=== PATIENT | female | born 1990 | race Caucasian/White ===

== ENCOUNTER → 2018-04-21 13:53 | Outpatient (CLI) | payer MEDICAID, SELFPAY ==
[2018-04-21 14:32] LABS: Basophils # 0.1 K/mm3 (0-0.2); Basophils % 0.6 % (0.1-2.0); Eosinophils # 0.1 K/mm3 (0.0-0.4); Eosinophils % 1.5 % (0.1-12.0); Hemoglobin 13.1 g/dL (12.2-16.2); Lymphocytes # 2.6 K/mm3 (0.7-4.5); Lymphocytes % 28.2 % (10-50); Mean Corpuscular HGB Conc 31.1 g/dL (31.8-35.4); Mean Corpuscular Hemoglobin 27.8 pg (27.0-31.2); Mean Corpuscular Volume 89.5 fl (81-99); Mean Platelet Volume 9.8 fl (7.4-10.4); Monocytes # 0.4 K/mm3 (0.1-1.0); Monocytes % 4.3 % (1.7-9.3); Neutrophils # 6.1 K/mm3 (1.8-7.8); Neutrophils % 65.6 % (37.0-80.0); Platelet Count 174 K/mm3 (142-424); Red Blood Count 4.69 M/mm3 (4.20-5.40); Red Cell Distribution Width 13.1 % (11.5-17.5); White Blood Count 9.2 K/mm3 (4.8-10.8)
[2018-04-21 14:59] LABS: Alanine Aminotransferase 77 U/L (12-78); Albumin Level 3.9 gm/dL (3.4-5.0); Albumin/Globulin Ratio 1.1 (1.1-1.8); Alkaline Phosphatase 57 U/L (46-116); Aspartate Amino Transferase 43 U/L (15-37); Bilirubin,Total 0.8 mg/dL (0.2-1.0); Blood Urea Nitrogen 13 mg/dL (7-18); Calcium 9.3 mg/dL (8.5-10.1); Carbon Dioxide 24 mmol/L (21.0-32.0); Chloride 105 mmol/L (98-107); Chol/HDL Ratio 3.2 (1-3.5); Cholesterol 148 mg/dL (140-200); Creatinine,Serum 0.88 mg/dL (0.55-1.02); Estimated Glomerular Filt Rate 77 ml/min (>60); GFR (African American) 93 ML/MIN (>60); Globulin 3.7 gm/dl (1.3-3.2); Glucose 83 mg/dL (74-106); HDL Cholesterol 46 mg/dL (29-89); LDL Cholesterol 84 mg/dL (0-130); Sodium 141 mmol/L (136-145); T4 (Thyroxine) 10.9 ug/dl (4.7-13.3); Thyroid Stimulating Hormone 1.53 uIU/ml (0.358-3.740); Total Protein,Serum 7.6 gm/dL (6.4-8.2); Triglycerides 88 mg/dL (30-200); VLDL Cholesterol 18 mg/dL (0-40)
[2018-04-21 15:30] LABS: Hemoglobin A1C 5.3 % (0.0-7.0)
[2018-04-23 13:05] LABS: Vitamin D 25 Hydroxy 34.1 ng/mL (30.0-100.0)
[2018-04-28 15:15] LABS: HCV Genotype Charge YES; Hepatitis C Genotype 1a (.)
== END ==
PROVIDERS: Visit Provider Physician Assistant
DX: B19.20 Unspecified viral hepatitis C without hepatic coma (principal); E11.9 Type 2 diabetes mellitus without complications
CPT/HCPCS: 80053; 80061; 82652; 83036; 84436; 84443; 85025; 87522; 87902

== ENCOUNTER → 2018-11-24 12:15 | Outpatient (CLI) | payer MEDICAID, SELFPAY ==
--- NOTE | 2018-11-24 12:21 | XR_ITS ---
PROCEDURE: XR FOOT WT BEARING RT 3V CLINICAL INDICATION: pain Follow-up fracture COMPARISON: XR FOOT RT MIN 3V from 11/23/2018 FINDINGS: There is an overlying wrap in place. Simulated weight-bearing views are obtained. No change nondisplaced transverse fracture at the base of the 5th metatarsal with no other significant anomalies. The fracture may extend into the proximal articular surface of the 5th metatarsal IMPRESSION: Nondisplaced transverse fracture base of 5th metatarsal. Dictated by: Gregory Dempsey MD 11/24/2018 13:38 Signed by: <Electronically signed by Gregory Dempsey MD in [place]> 11/24/2018 13:38
--- NOTE | 2018-11-24 12:21 | XR_ITS ---
PROCEDURE: XR ANKLE WT BEARING RT MIN 3V CLINICAL INDICATION: pain COMPARISON: No exams were available for comparison FINDINGS: No fracture, dislocation, lytic change, or blastic change evident. No significant degenerative change IMPRESSION: No acute findings. Dictated by: Gregory Dempsey MD 11/24/2018 13:36 Signed by: <Electronically signed by Gregory Dempsey MD in [place]> 11/24/2018 13:36
--- NOTE | 2018-11-24 12:21 | XR_ITS ---
PROCEDURE: XR CHEST 2V CLINICAL HISTORY: SMOKER, PREOP COMPARISON: No exams were available for comparison FINDINGS: The cardiomediastinal silhouette and pulmonary vascularity are within normal limits.No lobar consolidation or collapse. There is a 1 cm opacity in the anterior clear space well-circumscribed a may be due to a granuloma. The remaining lungs are clear.No acute bony abnormalities. IMPRESSION: No acute findings. Dictated by: Gregory Dempsey MD 11/24/2018 13:35 Signed by: <Electronically signed by Gregory Dempsey MD in [place]> 11/24/2018 13:35
--- NOTE | 2018-11-24 12:21 | XR_ITS ---
PROCEDURE: XR FOOT WT BEARING LT 3V CLINICAL INDICATION: pain COMPARISON: No exams were available for comparison FINDINGS: No fracture, dislocation, lytic change, or blastic change evident. No significant degenerative change IMPRESSION: No acute findings. Dictated by: Gregory Dempsey MD 11/24/2018 13:36 Signed by: <Electronically signed by Gregory Dempsey MD in [place]> 11/24/2018 13:36
[2018-11-24 14:32] LABS: Basophils % 0.3 % (0.1-2.0); Eosinophils # 0.1 K/mm3 (0.0-0.4); Eosinophils % 0.9 % (0.1-12.0); Lymphocytes # 1.8 K/mm3 (0.7-4.5); Lymphocytes % 27.1 % (10-50); Mean Corpuscular HGB Conc 31.8 g/dL (31.8-35.4); Mean Corpuscular Hemoglobin 27.8 pg (27.0-31.2); Mean Corpuscular Volume 87.3 fl (81-99); Mean Platelet Volume 8.3 fl (7.4-10.4); Monocytes # 0.3 K/mm3 (0.1-1.0); Monocytes % 5.2 % (1.7-9.3); Neutrophils # 4.4 K/mm3 (1.8-7.8); Neutrophils % 66.5 % (37.0-80.0); Platelet Count 189 K/mm3 (142-424); Red Blood Count 5.04 M/mm3 (4.20-5.40); Red Cell Distribution Width 13.3 % (11.5-17.5); White Blood Count 6.7 K/mm3 (4.8-10.8)
[2018-11-24 15:10] LABS: HCG Qualitative, Serum Negative (Negative)
[2018-11-24 17:31] LABS: Amphetamine/Metha Screen,Urine Negative ng/mL (<1000); Barbiturates Screen,Urine Negative ng/mL (<200); Benzodiazepines Screen,Urine Negative ng/mL (<200); Cannabinoid Screen,Urine Negative ng/mL (<50); Cocaine Screen,Urine Negative ng/mL (<300); Methadone Screen,Urine Negative ng/mL (<300); Opiate Screen,Urine Positive ng/mL (<300); Phencyclidine Screen,Urine Negative ng/mL (<25)
[2018-11-24 17:44] LABS: Anion Gap 16.9 mEq/L (5-15); Blood Urea Nitrogen 12 mg/dL (7-18); Calcium 9.4 mg/dL (8.5-10.1); Carbon Dioxide 24 mmol/L (21.0-32.0); Chloride 107 mmol/L (98-107); Creatinine,Serum 0.78 mg/dL (0.55-1.02); Estimated Glomerular Filt Rate 88 ml/min (>60); GFR (African American) 106 ML/MIN (>60); Glucose 77 mg/dL (74-106); Potassium 3.9 mmoL/L (3.5-5.1); Sodium 144 mmol/L (136-145)
[2018-11-26 00:27] LABS: Vitamin D 25 Hydroxy 44.7 ng/mL (30.0-100.0)
== END ==
PROVIDERS: PCP Emergency Medicine; Visit Provider Podiatrist
DX: M25.579 Pain in unspecified ankle and joints of unspecified foot (principal); Z01.818 Encounter for other preprocedural examination; T14.8XXA Other injury of unspecified body region, initial encounter
CPT/HCPCS: 36415; 71046; 73610; 73630; 80048; 80305; 82652; 84703; 85025

== ENCOUNTER → 2023-02-18 15:50 | Outpatient (CLI) | payer MEDICAID, SELFPAY ==
--- NOTE | 2023-02-18 15:54 | MM_ITS ---
PROCEDURE INFORMATION: Exam: MG Bilateral Screening 3D Mammography Exam date and time: 02/18/2023 3:46 PM Age: 33 years old Clinical indication: Screening mammogram TECHNIQUE: Imaging protocol: Bilateral Screening tomosynthesis and 2D mammography including computer-aided detection (CAD) when performed. COMPARISON: 1. MG DIAG BHARGAV DIG MAMMO W/CHANTELLE 11/29/2021 9:14 AM 2. US Breast 11/29/2021 9:35 AM 3. US Breast 11/29/2021 9:27 AM FINDINGS: MAMMOGRAPHY: Breast composition: There are scattered areas of fibroglandular density. Mass: Stable benign-appearing subcentimeter nodule is present in the right breast. No new or morphologically suspicious nodule has developed to suggest malignancy. Architectural distortion: No new or suspicious architectural distortion. Calcifications: No new or suspicious calcifications are present Asymmetric density: No new or suspicious asymmetric density is present Skin thickening: None. Axillary adenopathy: None. IMPRESSION: No mammographic evidence of malignancy. Recommend annual screening mammography unless otherwise clinically indicated. ASSESSMENT: BI-RADS category 2: Benign
== END ==
PROVIDERS: PCP Internal Medicine Adolescent Medicine; Visit Provider Physician Assistant
DX: Z12.31 Encounter for screening mammogram for malignant neoplasm of breast (principal)
CPT/HCPCS: 77063; 77067

== ENCOUNTER 2023-03-08 17:34 | Emergency (ER) | payer MEDICAID, SELFPAY ==
[2023-03-08 17:36] VITALS: BP 140/83; PULSE 85; RESP 18; TEMP 36.8; O2SAT 100; BMI 28.8
--- NOTE | 2023-03-08 17:43 | HMH.EDGENADL ---
Discharge Plan Disposition Patient Disposition: Home, Self-Care Condition: Good Prescriptions Prescriptions: No Action hydrocodone-acetaminophen 5-325 mg tablet 1 tab PO Q4-6H PRN (Reason: Pain) Qty: 40 0RF medroxyprogesterone [Depo-Provera] 150 mg/mL suspension 150 mg IM [id number] Referrals Follow up/Referrals: Alvarado Ashford MD [Primary Care Provider] - See instructions Clinical Impressions Clinical Impression: Close exposure to COVID-19 virus, Acute viral syndrome Instructions Patient Instructions: DI for Viral Syndrome Discharge ED Provider: Medina Hutchinson General Adult HPI General Chief complaint: Upper Respiratory Infection Stated complaint: sore throat , cough, fever Time Seen by Provider: 03/08/23 17:40 History of Present Illness HPI narrative: 33-year-old female with no significant past medical history coming to the ED for COVID exposure. 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 Her employer requested that she come to the ER for COVID testing. Patient notes that she has a mild sore throat and watery eyes, but no cough, congestion, rhinorrhea, fevers, chills, nausea, vomiting. Patient feels completely at baseline. Related Data Home Medications Medication Instructions Recorded Confirmed medroxyprogesterone 150 mg/mL 150 mg IM [id number] control 11/24/18 12/05/18 intramuscular suspension (Depo-Provera) Previous Rx's Medication Instructions Recorded hydrocodone 5 mg-acetaminophen 325 1 tab PO Q4-6H PRN Pain #40 tabs 12/02/18 mg tablet Allergies Allergy/AdvReac Type Severity Reaction Status Date / Time codeine Allergy Unknown Unknown Verified 12/02/18 14:02 allergy reaction Penicillins Allergy Unknown Unknown Verified 12/02/18 14:02 allergy reaction PFSH [facility] Disclaimer: The information contained in this section may have been updated after the patient was seen, as this information can be updated by other users. Medical History (Updated 03/08/23 @ 17:46 by Medina Hutchinson MD) Diabetes mellitus Hepatitis C virus infection Social History Smoking Status: Current every day smoker tobacco type: e-cigarettes alcohol intake: never substance use type: opiates current occupational status: unemployed Travel in the last 8 weeks: None household members: significant other housing: house caffeine: No ROS Obtained: Yes All systems reviewed & no additional complaints except as documented Physical Exam General General appearance: alert and in no apparent distress Head Head exam: atraumatic, normocephalic and normal inspection Eye Eye exam: Present normal appearance, PERRL and EOMI; Absent scleral icterus or nystagmus ENT ENT exam: Present normal exam, mucous membranes moist and normal external ear exam Neck Neck exam: Present normal inspection, full ROM and trachea midline Chest Chest inspection: Present normal inspection and symmetric chest wall rise; Absent tenderness Respiratory Respiratory exam: Present normal lung sounds bilaterally; Absent respiratory distress, wheezes or accessory muscle use Cardiovascular Cardiovascular exam: Present regular rate, normal rhythm and normal heart sounds Abdominal Exam Abdominal exam: Present soft; Absent distention, tenderness, guarding, rebound, rigidity, trauma, ascites or pulsatile mass Extremities Exam Extremities exam: Present normal inspection and full ROM; Absent tenderness Back Exam Back exam: Present normal inspection and full ROM; Absent tenderness Neurological Exam Neurological exam: Present alert, oriented X3, normal gait and motor sensory deficit Psychiatric Psychiatric exam: Present normal affect and normal mood Skin Skin exam: Present warm, dry and normal color Medical Decision Making Medical Records Medical records reviewed: Yes I reviewed the patient's medical records. Vikas Inquiry Pt receiving controlled substan
[2023-03-08 17:47] LABS: Coronavirus 19, PCR Not Detected (NotDetected); Influenza A, PCR Not Detected (NotDetected); Influenza B, PCR Not Detected (NotDetected)
[2023-03-08 19:07] VITALS: BP 131/81; PULSE 71; RESP 16; TEMP 36.8; O2SAT 100
== END 2023-03-08 19:08 | disposition home or self-care (01) ==
PROVIDERS: Emergency Provider Emergency Medicine; PCP Internal Medicine Adolescent Medicine
DX: J02.9 Acute pharyngitis, unspecified (principal); B34.9 Viral infection, unspecified; E11.9 Type 2 diabetes mellitus without complications; B19.20 Unspecified viral hepatitis C without hepatic coma; F17.290 Nicotine dependence, other tobacco product, uncomplicated
CPT/HCPCS: 87636; 99282

== ENCOUNTER 2023-05-17 17:41 | Emergency (ER) | payer SELFPAY ==
[2023-05-17 17:42] VITALS: BP 141/80; PULSE 85; RESP 18; TEMP 36.7; O2SAT 100; BMI 27.9
[2023-05-17 18:01] LABS: Coronavirus 19, PCR Not Detected (NotDetected); Influenza A, PCR Not Detected (NotDetected); Influenza B, PCR Not Detected (NotDetected)
[2023-05-17 18:17] LABS: Strep Scrn Group A (Rapid) Negative (Negative)
--- NOTE | 2023-05-17 18:42 | ED_ITS ---
Discharge Plan Disposition Patient Disposition: Home, Self-Care Prescriptions Prescriptions: New prednisone 20 mg tablet 40 mg PO DAILY 5 Days Qty: 10 0RF No Action hydrocodone-acetaminophen 5-325 mg tablet 1 tab PO Q4-6H PRN (Reason: Pain) Qty: 40 0RF medroxyprogesterone [Depo-Provera] 150 mg/mL suspension 150 mg IM [id number] Referrals Follow up/Referrals: Alvarado Ashford MD [Primary Care Provider] - See instructions Activity Restrictions/Add. Instructions Additional Instructions/Restrictions: Call your family doctor to establish care for this visit to the emergency department and schedule follow-up within 48 hours to ensure improvement. If you have any worsening of your condition or any other concerning signs or symptoms, return to the emergency department or your primary care doctor for further evaluation. Prednisone daily for 5 days. Take it in the morning to prevent sleep dist urbance. Take Tylenol 1000 mg every 6 hours (4 times daily) and ibuprofen 400 mg every 6 hours (4 times daily) as needed with food and water to prevent GI upset and kidney damage. Clinical Impressions Clinical Impression: Acute viral syndrome Discharge ED Provider: Jamaal Sinha General Adult HPI General Chief complaint: Upper Respiratory Infection Stated complaint: sore throat, cough, headache, fatigue Time Seen by Provider: 05/17/23 17:49 Mode of Arrival: Ambulatory Source of Information: Patient Limitations: No Limitations Description of Symptoms (Recalled from ER Triage Doc. by RN): PT C/O HEADACHE, SORE THROAT, COUGH, ITCHY EYES X 2 DAYS. History of Present Illness HPI narrative: 33-year-old female presenting with viral syndrome for about 2 days. Sore throat, cough, body aches. Cough is nonproductive, no fevers. Patient is told to take without issue. States that she has been taking Mucinex and that has not helped, so she came to the emergency department for further evaluation. Related Data Home Medications Medication Instructions Recorded Confirmed medroxyprogesterone 150 mg/mL 150 mg IM [id number] control 11/24/18 12/05/18 intramuscular suspension (Depo-Provera) Previous Rx's Medication Instructions Recorded hydrocodone 5 mg-acetaminophen 325 1 tab PO Q4-6H PRN Pain #40 tabs 12/02/18 mg tablet prednisone 20 mg tablet 40 mg PO DAILY 5 days #10 tabs 05/17/23 Allergies Allergy/AdvReac Type Severity Reaction Status Date / Time codeine Allergy Unknown Unknown Verified 12/02/18 14:02 allergy reaction Penicillins Allergy Unknown Unknown Verified 12/02/18 14:02 allergy reaction PFSH [facility] Disclaimer: The information contained in this section may have been updated after the patient was seen, as this information can be updated by other users. Medical History (Updated 05/17/23 @ 18:57 by Jamaal Sinha MD) Diabetes mellitus Hepatitis C virus infection Social History Smoking Status: Current every day smoker tobacco type: e-cigarettes alcohol intake: never substance use type: opiates current occupational status: unemployed Travel in the last 8 weeks: None household members: significant other housing: house caffeine: No ROS Obtained: Yes All systems reviewed & no additional complaints except as documented Physical Exam General General appearance: alert and in no apparent distress Head Head exam: atraumatic and normocephalic Eye Eye exam: Present normal appearance, PERRL and EOMI ENT ENT exam: Present mucous membranes moist Neck Neck exam: Present normal inspection, full ROM and trachea midline Respiratory Respiratory exam: Absent respiratory distress, wheezes, stridor, accessory muscle use or prolonged expiratory phase Cardiovascular Cardiovascular exam: Present normal rhythm Abdominal Exam Abdominal exam: Present soft; Absent distention, tenderness, guarding, rebound or rigidity Extremities Exam Extremities exam: Absent edema Neurological Exam Neurological exam: Present alert, oriented X3, CN II-XII intact and normal gait; Absent motor sensory deficit Skin Skin exam: Present warm and dry; Absent diaphoresis or erythema Medical Decision Making Medical Records Medical records reviewed: Yes I reviewed the patient's medical records. Vikas Inquiry Pt receiving controlled substance: No Vikas was queried for this patient: No Vital Signs: 05/17/23 17:42 Temperature 98.0 F Temperature Source Oral Pulse Rate [Radial] 85 Respiratory Rate 18 Blood Pressure [Right Arm] 141/80 H Blood Pressure Mean [Right Arm] 100 Blood Pressure Source [Right Arm] Automatic Cuff Blood Pressure Position [Right Arm] Sitting 02 Sat by Pulse Oximetry 100 Oxygen Delivery Method Room Air Lab Data Lab Results 05/17/23 17:49: SARS-CoV-2 (PCR) Not detected, Influenza A Untype (PCR) Not detected, Influenza Type B (PCR) Not detected, Group A Strep Rapid Negative Orders (Tests/Meds): ED MEDICATIONS Discontinued Medications Generic Name Dose Route Start Last Admin Trade Name Anastasiia PRN Reason Stop Dose Admin Acetaminophen 1,000 mg 05/17/23 18:41 Acetaminophen 500mg Tab PO 05/17/23 18:42 ONCE ONE Dexamethasone 10 mg 05/17/23 18:41 Dexamethasone 4mg Tablet PO 05/17/23 18:42 ONCE ONE Ibuprofen 600 mg 05/17/23 18:41 Ibuprofen 600 Mg Tablet PO 05/17/23 18:42 ONCE ONE ORDERS Category Date Time Status Rapid PCR Covid and Flu A/B Stat Lab 05/17/23 17:49 Completed Strep Scrn Group A (Rapid) Stat Lab 05/17/23 17:49 Completed Strep Screen Confirmation Stat Micro 05/17/23 17:49 Received Medical Decision Narrative: 33-year-old female presenting with viral syndrome for about 2 days. Sore throat, cough, body aches. Cough is nonproductive, no fevers. Patient is told to take without issue. States that she has been taking Mucinex and that has not helped, so she came to the emergency department for further evaluation. History was obtained via conversation with patient. On arrival, patient hemodynamically stable, alert, oriented x4, appropriate, GCS 15, moving all extremities spontaneously, pupils equal and reactive to light. Full physical exam performed and significant for very well-appearing woman in no acute distress. Lungs are clear to auscultation. Patient saturating appropriately on room air. Differential includes viral syndrome, among others. Patient was given Tylenol, Motrin, Decadron p.o. for symptomatic management and correction of underlying abnormalities. Workup independently interpreted and significant for COVID/flu/strep negative. See radiology read for full review of final results. Given patient presentation, workup, history, this most likely represents acute viral syndrome. Because patient at baseline without signs or symptoms of clinical decompensation, deemed appropriate for discharge. Results were relayed to patient who voiced understanding and were agreeable to outpatient management and follow up. At the time of discharge the patient was hemodynamically stable, tolerating PO, and mobilizing appropriately. Given prednisone for home-going. Critical Care Critical Care Time Critical Care Time: No
--- NOTE | 2023-05-17 18:53 | PC.NURSE ---
Pt voiced no needs. call light within reach.
[2023-05-17] MEDS: IBUPROFEN 600 MG TABLET PO (18:55)
[2023-05-17] MEDS: DEXAMETHASONE 4MG TABLET 10 MG PO (18:55)
[2023-05-17] MEDS: ACETAMINOPHEN 500MG TAB 1000 MG PO (18:56)
[2023-05-17 19:00] VITALS: BP 128/80; PULSE 80; RESP 18; TEMP 36.7; O2SAT 100
--- NOTE | 2023-05-22 06:56 | PC.NURSE ---
abnormal strep result reported to do Demetrius. New prescription sent to [facility]: clindamycin 450 mg TID x 10 days
--- NOTE | 2023-05-22 08:17 | PC.NURSE ---
PT NOTIFIED THAT RX IS CALLED INTO [facility]
== END 2023-05-17 19:00 | disposition home or self-care (01) ==
PROVIDERS: Emergency Provider Emergency Medicine; PCP Internal Medicine Adolescent Medicine
DX: J02.9 Acute pharyngitis, unspecified (principal); R05.9 Cough, unspecified; R51.9 Headache, unspecified; R53.83 Other fatigue; B34.9 Viral infection, unspecified; E11.9 Type 2 diabetes mellitus without complications; B19.20 Unspecified viral hepatitis C without hepatic coma; F17.290 Nicotine dependence, other tobacco product, uncomplicated
CPT/HCPCS: 87430; 87636; 99283

== ENCOUNTER 2023-05-27 22:07 | Emergency (ER) | payer SELFPAY ==
[2023-05-27 22:08] VITALS: BP 159/94; PULSE 97; RESP 16; TEMP 37.1; O2SAT 100; BMI 26.6
--- NOTE | 2023-05-27 22:20 | ED_ITS ---
Discharge Plan Disposition Patient Disposition: Home, Self-Care Prescriptions Prescriptions: New benzonatate 100 mg capsule 100 mg PO Q6H PRN (Reason: cough) Qty: 30 0RF No Action hydrocodone-acetaminophen 5-325 mg tablet 1 tab PO Q4-6H PRN (Reason: Pain) Qty: 40 0RF medroxyprogesterone [Depo-Provera] 150 mg/mL suspension 150 mg IM [id number] prednisone 20 mg tablet 40 mg PO DAILY 5 Days Qty: 10 0RF clindamycin HCl 150 mg capsule 450 mg PO TID 10 Days Qty: 90 0RF Referrals Follow up/Referrals: Alvarado Ashford MD [Primary Care Provider] - See instructions Activity Restrictions/Add. Instructions Additional Instructions/Restrictions: Please follow-up with your primary care provider. Please return to the emergency department if you develop any new or worsening symptoms or become concerned for your health. Please take Tessalon Perles as needed for cough. Please continue taking Tylenol ibuprofen and [id number] cough and cold medication as needed. Clinical Impressions Clinical Impression: Influenza B Cough Qualifiers: Cough type: acute Qualified Code(s): R05.1 - Acute cough Stand Alone Forms Stand Alone Forms: Work/School Release Discharge ED Provider: Mike Kimble General Adult HPI <MIQUEL Wise - Last Filed: 05/27/23 22:21> General Chief complaint: Upper Respiratory Infection Stated complaint: st cough pineda lethargy sneezing ba nausea Time Seen by Provider: 05/27/23 22:20 Related Data Home Medications Medication Instructions Recorded Confirmed medroxyprogesterone 150 mg/mL 150 mg IM [id number] control 11/24/18 12/05/18 intramuscular suspension (Depo-Provera) Previous Rx's Medication Instructions Recorded hydrocodone 5 mg-acetaminophen 325 1 tab PO Q4-6H PRN Pain #40 tabs 12/02/18 mg tablet prednisone 20 mg tablet 40 mg PO DAILY 5 days #10 tabs 05/17/23 clindamycin HCl 150 mg capsule 450 mg PO TID 10 days #90 caps 05/22/23 benzonatate 100 mg capsule 100 mg PO Q6H PRN cough #30 caps 05/27/23 Allergies Allergy/AdvReac Type Severity Reaction Status Date / Time codeine Allergy Unknown Unknown Verified 12/02/18 14:02 allergy reaction Penicillins Allergy Unknown Unknown Verified 12/02/18 14:02 allergy reaction <Mike Kimble MD - Last Filed: 05/28/23 00:01> History of Present Illness HPI narrative: 33-year-old female presents with multiple persistent respiratory symptoms. She reports continued nasal drainage and congestion. She reports continued sore throat, reports continued cough, intermittently productive. She was seen here about a week ago with similar symptoms. She was diagnosed with strep throat at the time and has been taking antibiotics as prescribed. She denies any fevers currently. Ports her primary concern is the throat pain and coughing. She denies any sinus pain. [facility] <MIQUEL Wise - Last Filed: 05/27/23 22:21> [facility] Disclaimer: The information contained in this section may have been updated after the patient was seen, as this information can be updated by other users. Medical History (Updated 05/27/23 @ 23:49 by Mike Kimble MD) Diabetes mellitus Hepatitis C virus infection Social History Smoking Status: Current every day smoker tobacco type: e-cigarettes alcohol intake: never substance use type: opiates current occupational status: unemployed Travel in the last 8 weeks: None household members: significant other housing: house caffeine: No <MIQUEL Wise - Last Filed: 05/27/23 22:21> ROS Obtained: Yes Systems reviewed as appropriate & no additional complaints except as documented Physical Exam <MIQUEL Wise - Last Filed: 05/27/23 22:21> General General appearance: alert and in no apparent distress Head Head exam: atraumatic and normal inspection Eye Eye exam: Present normal appearance, PERRL and EOMI ENT ENT exam: Present normal exam, normal oropharynx and mucous membranes moist Neck Neck exam: Present normal inspection, full ROM and trachea midline; Absent lymphadenopathy Chest Chest inspection: Present normal inspection and symmetric chest wall rise Respiratory Respiratory exam: Present normal lung sounds bilaterally; Absent accessory muscle use Cardiovascular Cardiovascular exam: Present regular rate, normal rhythm, normal heart sounds, +S1 and +S2 Abdominal Exam Abdominal exam: Present soft and normal bowel sounds; Absent tenderness, guarding or rebound Extremities Exam Extremities exam: Present normal inspection and full ROM Neurological Exam Neurological exam: Present alert, oriented X3 and CN II-XII intact Psychiatric Psychiatric exam: Present normal affect and normal mood Skin Skin exam: Present warm, dry and normal color Lymphatic Lymphatic Findings: no adenopathy <Mike Kimble MD - Last Filed: 05/28/23 00:01> ENT ENT exam: Present mucous membranes moist and other (Nasal congestion noted, mild posterior oropharyngeal erythema without exudate) Respiratory Respiratory exam: Absent respiratory distress or wheezes Back Exam Back exam: Present normal inspection; Absent tenderness Medical Decision Making <MIQUEL Wise - Last Filed: 05/27/23 22:21> Vital Signs: 05/27/23 22:08 Temperature 98.7 F Temperature Source Oral Pulse Rate [Right] 97 H Respiratory Rate 16 Blood Pressure [Right Arm] 159/94 H Blood Pressure Mean [Right Arm] 115 02 Sat by Pulse Oximetry 100 Lab Data Lab Results 05/27/23 22:22: SARS-CoV-2 (PCR) Not detected, Influenza A Untype (PCR) Not detected, Influenza Type B (PCR) Detected A, Group A Strep Rapid Negative Orders (Tests/Meds): ED MEDICATIONS Generic Name Dose Route Start Last Admin Trade Name Freq PRN Reason Stop Dose Admin Benzonatate 200 mg 05/27/23 23:30 05/27/23 23:37 Benzonatate 100mg Capsule PO 06/26/23 23:29 200 mg ONCE LUCRECIA Administration Discontinued Medications Generic Name Dose Route Start Last Admin Trade Name Freq PRN Reason Stop Dose Admin Lidocaine HCl 15 ml 05/27/23 23:19 05/27/23 23:37 Lidocaine 2% Viscous [place] 15ml Udc PO 05/27/23 23:20 15 ml ONCE ONE Administration ORDERS Category Date Time Status CXR --portable [XR chest portable] Stat Exams 05/27/23 23:19 Completed Rapid PCR Covid and Flu A/B Stat Lab 05/27/23 22:22 Completed Rapid Strep Scrn Group A [Strep Scrn Group A (Rapid)] Lab 05/27/23 22:22 Completed Stat Strep Screen Confirmation Stat Micro 05/27/23 22:22 Received Medical Decision Narrative: In summary patient is a [age, sex] who presents to the emergency department for evaluation of [complaint]. Patient is [hemodynamically stable/unstable] upon arrival, [febrile/afebrile]. [Unremarkable physical exam, nonfocal exam versus focal remarkable exam]. Differential diagnosis includes [DDx]. Initial workup will be conducted with [hematologic labs, imaging, respiratory swab, describe workup]. Initial interventions include [crystalloid bolus, medications, p.o. challenge, etc.] initial workup reviewed by me [hematologic labs are remarkable for... Imaging remarkable for... Urinalysis remarkable for]. Upon repeat evaluation [patient had acceptable resolution of symptoms, had persistent pain for which additional interventions were conducted (describe interventions), tolerated p.o., was ambulatory, etc.]. Given this [patient is appropriate for discharge at this time and will be discharged with a prescription for... The case was discussed with hospital medicine regarding management and they will admit the patient their service for continued evaluation at this time... Etc.] Places where you can increase complexity: I informally interpreted the patient's chest x-ray or CT read and is remarkable for... Documenting what the quality assurance monitor final shows with rate and rhythm Consideration of test but deferring. Ex: I considered chest x-ray on this patient however given that they have no oxygen requirement and are clear to auscultation all lung martin will be deferred. Social determinants of health: Given that patient is undomiciled increases complexity. Given that patient has polysubstance abuse compounds all aspects of care <Mike Kimble MD - Last Filed: 05/28/23 00:01> Medical Records Medical records reviewed: Yes I reviewed the patient's medical records. Vikas Inquiry Pt receiving controlled substance: No Vikas was queried for this patient: No Vital Signs: 05/27/23 22:08 Temperature 98.7 F Temperature Source Oral Pulse Rate [Right] 97 H Respiratory Rate 16 Blood Pressure [Right Arm] 159/94 H Blood Pressure Mean [Right Arm] 115 02 Sat by Pulse Oximetry 100 Lab Data Lab results reviewed: Yes I reviewed the patient's lab results. Lab Results 05/27/23 22:22: SARS-CoV-2 (PCR) Not detected, Influenza A Untype (PCR) Not detected, Influenza Type B (PCR) Detected A, Group A Strep Rapid Negative Orders (Tests/Meds): ED MEDICATIONS Generic Name Dose Route Start Last Admin Trade Name Freq PRN Reason Stop Dose Admin Benzonatate 200 mg 05/27/23 23:30 05/27/23 23:37 Benzonatate 100mg Capsule PO 06/26/23 23:29 200 mg ONCE LUCRECIA Administration Discontinued Medications Generic Name Dose Route Start Last Admin Trade Name Anastasiia PRN Reason Stop Dose Admin Lidocaine HCl 15 ml 05/27/23 23:19 05/27/23 23:37 Lidocaine 2% Viscous [place] 15ml Udc PO 05/27/23 23:20 15 ml ONCE ONE Administration ORDERS Category Date Time Status CXR --portable [XR chest portable] Stat Exams 05/27/23 23:19 Completed Rapid PCR Covid and Flu A/B Stat Lab 05/27/23 22:22 Completed Rapid Strep Scrn Group A [Strep Scrn Group A (Rapid)] Lab 05/27/23 22:22 Completed Stat Strep Screen Confirmation Stat Micro 05/27/23 22:22 Received Medical Decision Narrative: 33-year-old female with no significant past medical history, recent diagnosis and treatment for strep, presents with persistent symptoms including cough, sore throat, nasal congestion. History was obtained interactive discussion with patient. On arrival, patient is [afebrile, hemodynamically stable, satting appropriately, alert, oriented x4, GCS 15], moving all extremities spontaneously. Full physical exam performed and significant for clear lungs bilaterally, sinus congestion noted, mild posterior oropharyngeal erythema without exudate or swelling, moist mucous membranes Differential includes but is not limited to sinusitis, pneumonia, flu, COVID, untreated strep. Patient was given viscous lidocaine, Tessalon Perles for symptomatic management and correction of underlying abnormalities. Workup initiated including COVID swab, flu swab, strep swab chest x-ray. On re-evaluation, patient [remains afebrile, HD stable.] Reports marked impr ovement in her throat pain after viscous lidocaine. Laboratory workup independently interpreted by me and significant for negative strep screen, positive flu B swab Imaging independently interpreted by me and significant for clear lungs bilaterally without evidence of focal opacity. See radiology read for full review of final results. Treatment of flu was considered, but deemed unnecessary due to duration of symptoms, lack of underlying lung disease. Given patient history, exam and workup, patient's presentation most likely represents influenza B infection, likely after and another viral infection within the last week. No evidence of acute bacterial infection on history or exam or imaging. Extensive discussion was had with patient regarding her symptoms. She was given instructions regarding symptom control including [id number]-[id number] medications. She was discharged with prescription for Tessalon Perles. Return precautions given.. <Mike Kimble MD - Last Filed: 05/28/23 00:01> Risk/Benefits of Procedure(s) Were Explained: Yes <Mike Kimble MD - Last Filed: 05/28/23 00:01> Critical Care Time Critical Care Time: No
[2023-05-27 22:26] VITALS: BMI 26.6
[2023-05-27 22:56] LABS: Coronavirus 19, PCR Not Detected (NotDetected); Influenza A, PCR Not Detected (NotDetected)
[2023-05-27 23:06] LABS: Strep Scrn Group A (Rapid) Negative (Negative)
--- NOTE | 2023-05-27 23:19 | XR_ITS ---
PROCEDURE INFORMATION: Exam: XR Chest Exam date and time: 05/27/2023 11:24 PM Age: 33 years old Clinical indication: Cough; Additional info: Persistent productive cough TECHNIQUE: Imaging protocol: Radiologic exam of the chest. Views: 1 view. COMPARISON: CR XR CHEST 2V 11/24/2018 12:24 PM FINDINGS: Lungs: Unremarkable. No consolidation. Pleural spaces: Unremarkable. No pleural effusion. No pneumothorax. Heart/Mediastinum: Unremarkable. No cardiomegaly. Vasculature: Unremarkable. Bones/joints: Unremarkable. IMPRESSION: No acute findings.
[2023-05-27] MEDS: BENZONATATE 100MG CAPSULE 200 MG PO (23:37)
[2023-05-27] MEDS: LIDOCAINE 2% VISCOUS SOL 15ML UDC 15 ML PO (23:37)
[2023-05-27 23:40] LABS: Influenza B, PCR Detected (NotDetected)
[2023-05-27 23:55] VITALS: BP 134/87; PULSE 106; RESP 18; TEMP 36.9; O2SAT 100
== END 2023-05-27 23:55 | disposition home or self-care (01) ==
PROVIDERS: Emergency Medicine; Emergency Provider Emergency Medicine; PCP Internal Medicine Adolescent Medicine
DX: J10.1 Influenza due to other identified influenza virus with other respiratory manifestations (principal); J10.2 Influenza due to other identified influenza virus with gastrointestinal manifestations; R51.9 Headache, unspecified; R11.0 Nausea; R05.1 Acute cough
CPT/HCPCS: 71045; 87430; 87636; 99284

== ENCOUNTER 2024-01-01 14:04 | Emergency (ER) | payer SELFPAY ==
[2024-01-01 14:05] VITALS: BP 136/66; PULSE 78; RESP 16; TEMP 36.8; O2SAT 100; BMI 26.6
[2024-01-01 14:16] LABS: Coronavirus 19, PCR Not Detected (NotDetected); Influenza A, PCR Not Detected (NotDetected); Influenza B, PCR Not Detected (NotDetected)
--- NOTE | 2024-01-01 14:23 | HMH.EDGENADL ---
Discharge Plan Disposition Patient Disposition: Home, Self-Care Prescriptions Prescriptions: No Action medroxyprogesterone [Depo-Provera] 150 mg/mL suspension 150 mg IM [id number] Qty: 1 3RF topiramate 100 mg tablet 100 mg PO BID Referrals Follow up/Referrals: Alvarado Ashford MD [Primary Care Provider] - See instructions Activity Restrictions/Add. Instructions Additional Instructions/Restrictions: Take Tylenol 1000 mg every 6 hours and ibuprofen 400 mg every 6 hours as needed for headache and sore throat. Follow-up with primary care doctor. Please return emerged part with any new, concerning, worsening symptoms. Clinical Impressions Clinical Impression: Acute viral syndrome Instructions Patient Instructions: Common Cold Print Language Print Language: Yoruba Discharge ED Provider: Jayy Wang General Adult HPI General Chief complaint: Upper Respiratory Infection Stated complaint: diarrhea, headache, cough, sore throat Time Seen by Provider: 01/01/24 14:16 Mode of Arrival: Ambulatory Source of Information: Patient Limitations: No Limitations Description of Symptoms (Recalled from ER Triage Doc. by RN): Patient states that her place of employment wants her to be tested for COVID and strep. States that she has a sore throat, headache, and body aches. History of Present Illness HPI narrative: This is an otherwise healthy 33-year-old female who presents with sore throat, myalgias, chills, diarrhea, and headache for the last 3 days. Also reports associated shortness of breath. Denies fever. Has been taking ibuprofen for headache without significant relief. States that she was sent by her work. Related Data Home Medications ?Medication ?Instructions ?Recorded ?Confirmed topiramate 100 mg tablet 100 mg PO BID 06/27/23 09/25/23 Previous Rx's ?Medication ?Instructions ?Recorded medroxyprogesterone 150 mg/mL 150 mg IM [id number] control 06/27/23 intramuscular suspension #1 mL (Depo-Provera) Allergies Allergy/AdvReac Type Severity Reaction Status Date / Time codeine Allergy Unknown Unknown Verified 09/25/23 13:26 allergy reaction Penicillins Allergy Unknown Unknown Verified 09/25/23 13:26 allergy reaction PFSH PFS Disclaimer: The information contained in this section may have been updated after the patient was seen, as this information can be updated by other users. 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 Depo-Provera contraceptive status Vulvar lesion Mood disorder Anxiety Surgical History (Updated 06/27/23 @ 09:46 by TRIPP Reyna) History of cholecystectomy History of delivery Family History (Updated 06/27/23 @ 09:47 by TRIPP Reyna) Grandmother Cancer Father Coronary artery disease Other Heart attack Social History Smoking Status: Never smoker alcohol intake: never substance use type: opiates current occupational status: unemployed Travel in the last 8 weeks: None household members: significant other housing: house caffeine: No ROS Obtained: Yes All systems reviewed & no additional complaints except as documented Physical Exam General General appearance: alert and in no apparent distress Eye Eye exam: Present normal appearance, PERRL and EOMI ENT ENT exam: Present normal exam, normal oropharynx and mucous membranes moist Respiratory Respiratory exam: Present normal lung sounds bilaterally; Absent respiratory distress Cardiovascular Cardiovascular exam: Present regular rate and normal rhythm Abdominal Exam Abdominal exam: Present soft and distention; Absent tenderness, guarding or rebound Extremities Exam Extremities exam: Present normal inspection Neurological Exam Neurological exam: Present alert and oriented X3 Skin Skin exam: Present warm and dry Medical Decision Making Medical Records Medical records reviewed: Yes I reviewed the patient's medical records. Screening: Per USPSTF and CDC recommendations, given the prevalence of disease in our region, it is our hospital?s policy to screen for HIV and viral Hepatitis for all patients aged 18 and over and those with ongoing risk factors. Vikas Inquiry Pt receiving controlled substance: No Vital Signs: 01/01/24 14:05 Temperature 98.2 F Temperature Source Oral Pulse Rate [Radial] 78 Respiratory Rate 16 Blood Pressure [Right Arm] 136/66 Blood Pressure Mean [Right Arm] 89 Blood Pressure Source [Right Arm] Automatic Cuff Blood Pressure Position [Right Arm] Sitting 02 Sat by Pulse Oximetry 100 Oxygen Delivery Method Room Air Orders (Tests/Meds): ORDERS Category Date Time Status Rapid PCR Covid and Flu A/B Stat Lab 01/01/24 14:09 Received Strep Scrn Group A (Rapid) Stat Lab 01/01/24 14:09 Received Medical Decision Narrative: In summary, this 33-year-old female, otherwise healthy, presents to the emergency department today with sore throat, myalgias, headache, diarrhea for the last 3 days. On initial evaluation patient is afebrile, hemodynamically stable, nontoxic-appearing. Clear lung sounds bilaterally, clear oropharynx. Differential diagnosis includes but is not limited to viral pharyngitis, viral syndrome, pneumonia,. Based on these concerns, I ordered viral swab. Offered the patient Tylenol and ibuprofen for symptomatic management, however she declined. She was to follow-up the results of her viral swab online. Appropriate for discharge at this time. Most likely etiology of her symptoms is a viral syndrome. Critical Care Critical Care Time Critical Care Time: No
[2024-01-01 14:30] VITALS: BP 136/66; PULSE 95; RESP 16; TEMP 36.8; O2SAT 97
[2024-01-01 14:47] LABS: Strep Scrn Group A (Rapid) Negative (Negative)
== END 2024-01-01 14:31 | disposition home or self-care (01) ==
PROVIDERS: Emergency Provider Student in an Organized Health Care Education/Training Program; PCP Internal Medicine Adolescent Medicine
DX: R51.9 Headache, unspecified (principal); R07.0 Pain in throat; B34.9 Viral infection, unspecified
CPT/HCPCS: 87430; 87636; 99283

== ENCOUNTER 2024-04-04 04:52 | Emergency (ER) | payer SELFPAY ==
[2024-04-04 04:53] VITALS: BP 118/86; PULSE 76; RESP 18; TEMP 36.6; O2SAT 100; BMI 28.3
[2024-04-04 05:11] LABS: Coronavirus 19, PCR Not Detected (NotDetected); Influenza A, PCR Not Detected (NotDetected); Influenza B, PCR Not Detected (NotDetected)
--- NOTE | 2024-04-04 05:23 | ED_ITS ---
Discharge Plan Disposition Patient Disposition: Home, Self-Care Condition: Good Prescriptions Prescriptions: No Action medroxyprogesterone [Depo-Provera] 150 mg/mL suspension 150 mg IM [id number] Qty: 1 3RF topiramate 100 mg tablet 100 mg PO BID Referrals Follow up/Referrals: Alvarado Ashford MD [Primary Care Provider] - See instructions Activity Restrictions/Add. Instructions Additional Instructions/Restrictions: You were evaluated in the ER and are appropriate for discharge at this time. Find the results of the viral swab and the patient portal. Please make an appointment with your primary care doctor for reevaluation in a few days. You can take Tylenol, ibuprofen if needed for symptoms, Do not exceed the recommended dose on the bottle. Drink plenty of water. Return to the ER with new, worsening, or otherwise concerning symptoms. Clinical Impressions Clinical Impression: Acute viral syndrome Stand Alone Forms Stand Alone Forms: Work/School Release Print Language Print Language: Lebanese Discharge ED Provider: Graciela Bell General Adult HPI General Chief complaint: Upper Respiratory Infection Stated complaint: sore throat, cough, drainage, nausea Time Seen by Provider: 04/04/24 04:59 Mode of Arrival: Ambulatory Source of Information: Patient Limitations: No Limitations Description of Symptoms (Recalled from ER Triage Doc. by RN): Patient ambulatory to ED with complaints of having exposure to the flu approx 2-3 days ago. Patient experiencing headache, congestion, nausea, and bilateral ear pain/drainage x 2 days. Denies fever/chills. History of Present Illness HPI narrative: Otherwise healthy 34-year-old female presents to the ER wanting to be checked for flu. She reports she was exposed to the flu on . The individual she was exposed to tested positive for influenza B. She reports she is not having fever, chills, vomiting, or diarrhea but she is reporting headache, congestion, mild nausea, and drainage. She states she is not interested in any treatment but just needs to know for work if she is positive for flu or COVID. She is not having any severe symptoms and is comfortable at this time. Related Data Home Medications ?Medication ?Instructions ?Recorded ?Confirmed topiramate 100 mg tablet 100 mg PO BID 06/27/23 09/25/23 Previous Rx's ?Medication ?Instructions ?Recorded medroxyprogesterone 150 mg/mL 150 mg IM [id number] control 06/27/23 intramuscular suspension #1 mL (Depo-Provera) Allergies Allergy/AdvReac Type Severity Reaction Status Date / Time codeine Allergy Unknown Unknown Verified 09/25/23 13:26 allergy reaction Penicillins Allergy Unknown Unknown Verified 09/25/23 13:26 allergy reaction PFSH [facility] Disclaimer: The information contained in this section may have been updated after the patient was seen, as this information can be updated by other users. 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 Depo-Provera contraceptive status Vulvar lesion Mood disorder Anxiety Surgical History (Updated 06/27/23 @ 09:46 by TRIPP Reyna) History of cholecystectomy History of delivery Family History (Updated 06/27/23 @ 09:47 by TRIPP Reyna) Grandmother Cancer Father Coronary artery disease Other Heart attack Social History Smoking Status: Current every day smoker tobacco type: e-cigarettes alcohol intake: never substance use type: opiates current occupational status: unemployed Travel in the last 8 weeks: None household members: significant other housing: house caffeine: No Have you lived/traveled outside [place] in past 30 days?: No Contact w/someone who lives/traveled outside US past 30 days?: No Exposure to someone with infectious disease in past 14 days?: Yes Do you have a fever (greater than 100.4 F or 38 C)?: No Have you tested positive for COVID-19: No Exposed to someone with COVID-19 in past 14 days?: No Do you have a sore throat?: Yes Do you have a cough?: Yes Do you have any weakness?: No Do you have any diarrhea?: No Are you experiencing any unusual bleeding?: No Do you have any muscle aches/pain?: No Do you have any abdominal pain?: No Are you experiencing loss of taste or smell?: No Other Medical History Have you received the Flu Vaccine for this season: No Have you received the Pneumonia Vaccine: No ROS Obtained: Yes Systems reviewed as appropriate & no additional complaints except as documented Per HPI Physical Exam General General appearance: alert and in no apparent distress Head Head exam: atraumatic and normocephalic Eye Eye exam: Present PERRL and EOMI ENT ENT exam: Present mucous membranes moist and TM's normal bilaterally Neck Neck exam: Present normal inspection and full ROM Chest Chest inspection: Present symmetric chest wall rise Respiratory Respiratory exam: Absent respiratory distress or stridor Cardiovascular Cardiovascular exam: Present regular rate and normal rhythm Extremities Exam Extremities exam: Present full ROM Neurological Exam Neurological exam: Present alert, oriented X3, CN II-XII intact and normal gait; Absent motor sensory deficit Psychiatric Psychiatric exam: Present normal affect and normal mood Skin Skin exam: Present warm and dry Medical Decision Making Medical Records Medical records reviewed: Yes I reviewed the patient's medical records. Screening: Per USPSTF and CDC recommendations, given the prevalence of disease in our region, it is our hospital?s policy to screen for HIV and viral Hepatitis for all patients aged 18 and over and those with ongoing risk factors. MR Comment: History of hepatitis C, she had requested to start treatment in 2019 per my review of a note from Dr. Christina Bean Inquiry Pt receiving controlled substance: No Vital Signs: 04/04/24 04:53 04/04/24 05:29 Temperature 97.8 F 97.9 F Temperature Source Oral Oral Pulse Rate 78 Pulse Rate [Left] 76 Respiratory Rate 18 16 Blood Pressure 105/77 L Blood Pressure [Right Arm] 118/86 Blood Pressure Mean [Right Arm] 96 Blood Pressure Source Automatic Cuff Blood Pressure Source [Right Arm] Automatic Cuff Blood Pressure Position Supine Blood Pressure Position [Right Arm] Sitting 02 Sat by Pulse Oximetry 100 Oxygen Delivery Method Room Air Room Air Lab Data Lab Results 04/04/24 05:00: SARS-CoV-2 (PCR) Not detected, Influenza A Untype (PCR) Not detected, Influenza Type B (PCR) Not detected Orders (Tests/Meds): ORDERS Category Date Time Status Rapid PCR Covid and Flu A/B Stat Lab 04/04/24 05:00 Completed Medical Decision Narrative: In summary, 34-year-old female with history of hepatitis C presents to the ER requesting to be tested for influenza. On initial evaluation patient is hemodynamically stable, afebrile, GCS 15, cardiopulmonary exam benign, no neurologic abnormalities, exam overall is very reassuring without acute abnormality. Patient understands that results of viral testing will not foreign exchange trader at this time since she has declined to receive Tamiflu even if she is positive for influenza. COVID/flu test was ordered and performed. Patient is appropriate for discharge. Since results will not foreign exchange trader, she was instructed to find the results in the patient portal. Patient was given instructions on symptomatic management, follow up instructions, and return precautions for the emergency department. Patient indicated understanding and was discharged in stable condition. Labs reviewed after patient was discharged demonstrates she is negative for COVID, influenza. Critical Care Critical Care Time Critical Care Time: No
[2024-04-04 05:29] VITALS: BP 105/77; PULSE 78; RESP 16; TEMP 36.6; O2SAT 100
== END 2024-04-04 05:33 | disposition home or self-care (01) ==
PROVIDERS: Emergency Provider Emergency Medicine; PCP Internal Medicine Adolescent Medicine
DX: B34.9 Viral infection, unspecified (principal); R51.9 Headache, unspecified; R09.81 Nasal congestion; R11.0 Nausea; H92.03 Otalgia, bilateral
CPT/HCPCS: 87636; 99283

== ENCOUNTER 2024-04-06 06:22 | Emergency (ER) | payer SELFPAY ==
[2024-04-06 06:30] VITALS: BP 146/80; PULSE 67; RESP 16; TEMP 36.8; O2SAT 100; BMI 28.3
[2024-04-06] MEDS: ONDANSETRON 4MG ODT 4 MG SL (06:43)
[2024-04-06] MEDS: ACETAMINOPHEN 500MG TAB 1000 MG PO (06:43)
--- NOTE | 2024-04-06 06:43 | ED_ITS ---
Discharge Plan Disposition Patient Disposition: Home, Self-Care Condition: Good Prescriptions Prescriptions: New ondansetron 4 mg tablet,disintegrating 4 mg PO Q6H PRN (Reason: nausea and vomiting) Qty: 10 0RF No Action medroxyprogesterone [Depo-Provera] 150 mg/mL suspension 150 mg IM [id number] Qty: 1 3RF topiramate 100 mg tablet 100 mg PO BID Referrals Follow up/Referrals: Alvarado Ashford MD [Primary Care Provider] - See instructions Activity Restrictions/Add. Instructions Additional Instructions/Restrictions: You were evaluated in the ER and are appropriate for discharge at this time. Take Tylenol (acetaminophen) and ibuprofen (Advil/Motrin) if needed for fevers or bodyaches. Do not exceed the recommended doses on the bottle. Drink water and eat a small snack each time you take these medications to avoid side effects. Take the prescribed ondansetron if needed for nausea or vomiting. Drink plenty of water. Get plenty of rest. Make an appointment with your primary care doctor for reevaluation in a few days. Return to the ER with new, worsening, or otherwise concerning symptoms. Clinical Impressions Clinical Impression: Viral syndrome, Nausea & vomiting Stand Alone Forms Stand Alone Forms: Work/School Release Print Language Print Language: Solomon Islander Discharge ED Provider: Graciela Bell Adult HPI General Chief complaint: Upper Respiratory Infection Stated complaint: cough, congestion, fever, vomiting Time Seen by Provider: 04/06/24 06:29 Mode of Arrival: EMS Source of Information: Patient Limitations: No Limitations Description of Symptoms (Recalled from ER Triage Doc. by RN): Pt seen a few days ago and tested negative for flu but continues to have symptoms of cough congestion and nausea and vomiting History of Present Illness HPI narrative: 34-year-old female presents to the ER for concerns of cough, congestion, nausea, vomiting. She was evaluated a few nights ago and tested negative for COVID and flu but states the symptoms she was having that night are worsened. She states she has had fevers that have broken with Motrin and had sweating. She has no abdominal pain or diarrhea. She states her cough is nonproductive but she does not have any chest pain or difficulty breathing. She states she does not need to have another swab, but needs a note for work. She denies any headache, dizziness, numbness, tingling, dysuria, hematuria, she is on the Depo shot. Related Data Home Medications ?Medication ?Instructions ?Recorded ?Confirmed topiramate 100 mg tablet 100 mg PO BID 06/27/23 09/25/23 Previous Rx's ?Medication ?Instructions ?Recorded medroxyprogesterone 150 mg/mL 150 mg IM [id number] control 06/27/23 intramuscular suspension #1 mL (Depo-Provera) ondansetron 4 mg disintegrating 4 mg PO Q6H PRN nausea and 04/06/24 tablet vomiting #10 tabs Allergies Allergy/AdvReac Type Severity Reaction Status Date / Time codeine Allergy Unknown Unknown Verified 09/25/23 13:26 allergy reaction Penicillins Allergy Unknown Unknown Verified 09/25/23 13:26 allergy reaction PFSH [facility] Disclaimer: The information contained in this section may have been updated after the patient was seen, as this information can be updated by other users. 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 Depo-Provera contraceptive status Vulvar lesion Mood disorder Anxiety Surgical History (Updated 06/27/23 @ 09:46 by TRIPP Reyna) History of cholecystectomy History of delivery Family History (Updated 06/27/23 @ 09:47 by TRIPP Reyna) Grandmother Cancer Father Coronary artery disease Other Heart attack Social History Smoking Status: Current every day smoker tobacco type: e-cigarettes alcohol intake: never substance use type: opiates current occupational status: unemployed Travel in the last 8 weeks: None household members: significant other housing: house caffeine: No Have you lived/traveled outside US in past 30 days?: No Contact w/someone who lives/traveled outside US past 30 days?: No Exposure to someone with infectious disease in past 14 days?: Yes Do you have a fever (greater than 100.4 F or 38 C)?: No Have you tested positive for COVID-19: No Exposed to someone with COVID-19 in past 14 days?: No Do you have a sore throat?: Yes Do you have a cough?: Yes Do you have any weakness?: Yes Do you have any diarrhea?: Yes Are you experiencing any unusual bleeding?: No Do you have any muscle aches/pain?: Yes Do you have any abdominal pain?: No Are you experiencing loss of taste or smell?: No Other Medical History Have you received the Flu Vaccine for this season: No Have you received the Pneumonia Vaccine: No ROS Obtained: Yes Systems reviewed as appropriate & no additional complaints except as documented Per HPI Physical Exam General General appearance: alert and in no apparent distress Head Head exam: atraumatic and normocephalic Eye Eye exam: Present PERRL and EOMI ENT ENT exam: Present mucous membranes moist and other (Nasal congestion) Neck Neck exam: Present normal inspection and full ROM Chest Chest inspection: Present symmetric chest wall rise; Absent tenderness Respiratory Respiratory exam: Present normal lung sounds bilaterally; Absent respiratory distress, wheezes or stridor Cardiovascular Cardiovascular exam: Present regular rate and normal rhythm Abdominal Exam Abdominal exam: Present soft; Absent distention or tenderness Extremities Exam Extremities exam: Present full ROM; Absent edema Neurological Exam Neurological exam: Present alert, oriented X3 and normal gait; Absent motor sensory deficit Psychiatric Psychiatric exam: Present normal affect and normal mood Skin Skin exam: Present warm and dry Medical Decision Making Medical Records Medical records reviewed: Yes I reviewed the patient's medical records. Screening: Per USPSTF and CDC recommendations, given the prevalence of disease in our region, it is our hospital?s policy to screen for HIV and viral Hepatitis for all patients aged 18 and over and those with ongoing risk factors. MR Comment: COVID/flu test on 04/04 negative. Vikas Inquiry Pt receiving controlled substance: No Vital Signs: 04/06/24 06:30 Temperature 98.3 F Temperature Source Oral Pulse Rate [Right Brachial] 67 Respiratory Rate 16 Blood Pressure [Right Arm] 146/80 H Blood Pressure Mean [Right Arm] 102 Blood Pressure Source [Right Arm] Automatic Cuff Blood Pressure Position [Right Arm] Sitting 02 Sat by Pulse Oximetry 100 Oxygen Delivery Method Room Air Orders (Tests/Meds): ED MEDICATIONS Discontinued Medications Generic Name Dose Route Start Last Admin Trade Name Freq PRN Reason Stop Dose Admin Acetaminophen 1,000 mg 04/06/24 06:29 Acetaminophen 500mg Tab PO 04/06/24 06:30 ONCE ONE Ondansetron HCl 4 mg 04/06/24 06:29 Ondansetron 4mg Odt SL 04/06/24 06:30 ONCE ONE ORDERS Category Date Time Status HIV (1&2) Antibody Rapid Stat Lab 04/06/24 06:33 Ordered Hep C Ab with Reflex to RNA Stat Lab 04/06/24 06:33 Ordered Medical Decision Narrative: In summary, this 34-year-old female presents to the emergency department today with worsening viral symptoms than those which she presented with 2 days ago. On initial evaluation patient is hemodynamically stable, currently afebrile, she has nasal congestion, benign cardiopulmonary exam, no peripheral edema, she reports nausea and vomiting but has no abdominal pain, abdomen is soft, nontender, nondistended, nonacute, remainder of exam benign. Differential diagnosis includes but is not limited to viral syndrome, she has only had small volume vomiting that was nonbloody, nonbilious so I have very low suspicion for electrolyte abnormality or dehydration. She is currently tolerating oral intake.. I discussed viral swab with the patient and she understands that there is no utility to it at this time, she reports she is mainly here for a work note. She has no red flag signs or symptoms and does not require any other labs or imaging at this time. I did administer ondansetron. She is tolerating oral intake and is appropriate for discharge. Work note was provided to the patient. Ondansetron was prescribed. Patient was given instructions on symptomatic management, follow up instructions, and return precautions for the emergency department. Patient indicated understanding and was discharged in stable condition. Critical Care Critical Care Time Critical Care Time: No
[2024-04-06 06:47] VITALS: BP 146/80; PULSE 67; RESP 16; TEMP 36.8; O2SAT 100
== END 2024-04-06 06:48 | disposition home or self-care (01) ==
PROVIDERS: Emergency Provider Emergency Medicine; PCP Internal Medicine Adolescent Medicine
DX: B34.9 Viral infection, unspecified (principal); R05.9 Cough, unspecified; R09.81 Nasal congestion; R11.2 Nausea with vomiting, unspecified
CPT/HCPCS: 99283; Q0162

== ENCOUNTER 2024-06-25 18:47 | Emergency (ER) | payer SELFPAY ==
[2024-06-25 18:55] VITALS: BP 127/73; PULSE 92; RESP 18; TEMP 36.7; O2SAT 100; BMI 27.4
--- NOTE | 2024-06-25 19:12 | HMH.EDGENADL ---
Discharge Plan Disposition Patient Disposition: Home, Self-Care Condition: Good Prescriptions Prescriptions: New nitrofurantoin monohyd/m-cryst 100 mg capsule 100 mg PO BID 5 Days Qty: 10 0RF Rx Instructions: must administer with a meal/food methocarbamol 750 mg tablet 750 mg PO Q6H PRN (Reason: muscle spasm) Qty: 20 0RF No Action medroxyprogesterone [Depo-Provera] 150 mg/mL suspension 150 mg IM [id number] Qty: 1 3RF topiramate 100 mg tablet 100 mg PO BID ondansetron 4 mg tablet,disintegrating 4 mg PO Q6H PRN (Reason: nausea and vomiting) Qty: 10 0RF Referrals Follow up/Referrals: Jamari Avalos DO [Staff Physician] - See instructions Alvarado Ashford MD [Primary Care Provider] - See instructions Activity Restrictions/Add. Instructions Additional Instructions/Restrictions: I recommend continuing taking Tylenol alternating every 4 hours with Motrin for your hip discomfort. I have also sent in a muscle relaxer. I have referred you to orthopedics for further evaluation as you may likely need further imaging. Additionally have sent in a prescription to your pharmacy for a urinary tract infection. Please take your medication until it is gone. If you have continued new or worsening signs or symptoms follow-up closely with your PCP or return to the ER as needed. Clinical Impressions Clinical Impression: Acute pain of left hip Urinary tract infectious disease Qualifiers: Urinary tract infection type: site unspecified Hematuria presence: with hematuria Qualified Code(s): N39.0 - Urinary tract infection, site not specified Print Language Print Language: [place] Discharge ED Provider: Jamaal Sinha General Adult HPI <MIQUEL Wise - Last Filed: 06/25/24 21:52> General Chief complaint: PAIN Stated complaint: LT hip pain, no inj Time Seen by Provider: 06/25/24 19:10 Mode of Arrival: Ambulatory Source of Information: Patient Description of Symptoms (Recalled from ER Triage Doc. by RN): c/o trouble walking in her left hip and bearing weight, reports that she was fine today at work, did a few things around town and when she went to get out of the truck she started having the hip pain, denies any injury or past issues with hip. reports that when she walks her pain is 9, sitting it is a 0. History of Present Illness HPI narrative: Patient presents for evaluation of atraumatic left hip pain. Patient states that she began having left-sided hip pain while working today. It radiates into her left groin. It is better when she sitting but it comes right back when standing. She denies any trauma. She has never had this problem before. She denies any chest pain shortness of breath fever chills hemoptysis hematochezia melena nausea vomiting diarrhea back pain loss of motor or sensory. Related Data Home Medications ?Medication ?Instructions ?Recorded ?Confirmed topiramate 100 mg tablet 100 mg PO BID 06/27/23 09/25/23 Previous Rx's ?Medication ?Instructions ?Recorded medroxyprogesterone 150 mg/mL 150 mg IM [id number] control 06/27/23 intramuscular suspension #1 mL (Depo-Provera) ondansetron 4 mg disintegrating 4 mg PO Q6H PRN nausea and 04/06/24 tablet vomiting #10 tabs methocarbamol 750 mg tablet 750 mg PO Q6H PRN muscle spasm #20 06/25/24 tabs nitrofurantoin 100 mg PO BID 5 days #10 caps 06/25/24 monohydrate/macrocrystals 100 mg capsule Allergies Allergy/AdvReac Type Severity Reaction Status Date / Time codeine Allergy Unknown Unknown Verified 09/25/23 13:26 allergy reaction Penicillins Allergy Unknown Unknown Verified 09/25/23 13:26 allergy reaction [facility] <MIQUEL Wise - Last Filed: 06/25/24 21:52> [facility] Disclaimer: The information contained in this section may have been updated after the patient was seen, as this information can be updated by other users. 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 Depo-Provera contraceptive status Vulvar lesion Mood disorder Anxiety Surgical History (Updated 06/27/23 @ 09:46 by TRIPP Reyna) History of cholecystectomy History of delivery Family History (Updated 06/27/23 @ 09:47 by TRIPP Reyna) Grandmother Cancer Father Coronary artery disease Other Heart attack Social History Smoking Status: Unknown if ever smoked alcohol intake: never substance use type: opiates current occupational status: unemployed Travel in the last 8 weeks: None household members: significant other housing: house caffeine: No Have you lived/traveled outside [place] in past 30 days?: No Contact w/someone who lives/traveled outside US past 30 days?: No Exposure to someone with infectious disease in past 14 days?: No Do you have a fever (greater than 100.4 F or 38 C)?: No Have you tested positive for COVID-19: No Exposed to someone with COVID-19 in past 14 days?: No Do you have a sore throat?: No Do you have a cough?: No Do you have any weakness?: No Do you have any diarrhea?: No Are you experiencing any unusual bleeding?: No Do you have any muscle aches/pain?: No Do you have any abdominal pain?: No Are you experiencing loss of taste or smell?: No Other Medical History Have you received the Flu Vaccine for this season: No Have you received the Pneumonia Vaccine: No <MIQUEL Wise - Last Filed: 06/25/24 21:52> ROS Obtained: Yes Systems reviewed as appropriate & no additional complaints except as documented Physical Exam <MIQUEL Wise - Last Filed: 06/25/24 21:52> General General appearance: alert and in no apparent distress Respiratory Respiratory exam: Present normal lung sounds bilaterally Cardiovascular Cardiovascular exam: Present regular rate Neurological Exam Neurological exam: Present alert and oriented X3 Medical Decision Making <MIQUEL Wise - Last Filed: 06/25/24 21:52> Medical Records Medical records reviewed: Yes I reviewed the patient's medical records. Screening: Per USPSTF and CDC recommendations, given the prevalence of disease in our region, it is our hospital?s policy to screen for HIV and viral Hepatitis for all patients aged 18 and over and those with ongoing risk factors. Vikas Inquiry Pt receiving controlled substance: No Vital Signs: 06/25/24 18:55 06/25/24 22:02 Temperature 98.1 F 98.2 F Temperature Source Oral Oral Pulse Rate 80 Pulse Rate [Left Radial] 92 H Respiratory Rate 18 20 Blood Pressure 140/70 Blood Pressure [Right Arm] 127/73 Blood Pressure Mean [Right Arm] 91 Blood Pressure Source Automatic Cuff Blood Pressure Position Sitting 02 Sat by Pulse Oximetry 100 Oxygen Delivery Method Room Air Room Air Lab Data Lab results reviewed: Yes I reviewed the patient's lab results. Lab Results 06/25/24 19:35: WBC 6.0, RBC 4.64, Hgb 13.4, Hct 41.2, MCV 88.8, MCH 28.9, MCHC 32.5, RDW 12.6, Plt Count 218, MPV 10.1, Neut % (Auto) 43.1, Lymph % (Auto) 46.3, Piatt % (Auto) 7.2, Eos % (Auto) 2.5, Baso % (Auto) 0.7, Neut # (Auto) 2.6, Lymph # (Auto) 2.8, Piatt # (Auto) 0.4, Eos # (Auto) 0.2, Baso # (Auto) 0.0, ESR 10, Sodium 141, Potassium 3.7, Chloride 113 H, Carbon Dioxide 24, Anion Gap 7.7, BUN 17, Creatinine 1.00, Estimated Creat Clear 94, Estimated GFR 63, Est GFR ( Amer) 77, Glucose 87, Calcium 9.7, Total Bilirubin 0.5, AST 25, ALT 16, Alkaline Phosphatase 37 L, C-Reactive Protein < 0.3, Total Protein 7.4, Albumin 4.7, Globulin 2.7, Albumin/Globulin Ratio 1.7, Serum HCG, Qual Negative 06/25/24 19:46: Urine Color Yellow, Urine Appearance Cloudy, Urine pH 7.0, Ur Specific [place] 1.020, Urine Protein Negative, Urine Glucose (UA) Negative, Urine Ketones Negative, Urine Blood Negative, Urine Nitrate Negative, Urine Bilirubin Negative, Urine Urobilinogen 0.2, Ur Leukocyte Esterase Negative, Urine RBC Occasional, Urine WBC Occasional, Ur Squamous Epith Cells 5-10, Amorphous Sediment 4+, Urine Bacteria 2+ 06/25/24 19:35 06/25/24 19:35 Orders (Tests/Meds): ED MEDICATIONS Discontinued Medications Generic Name Dose Route Start Last Admin Trade Name Freq PRN Reason Stop Dose Admin Acetaminophen 1,000 mg 06/25/24 19:14 06/25/24 19:23 Acetaminophen 500mg Tab PO 06/25/24 19:15 1,000 mg ONCE ONE Administration Dexamethasone Sodium Phosphate 10 mg 06/25/24 19:14 06/25/24 19:23 Dexamethasone 4mg/Ml 5ml Mdv IV 06/25/24 19:15 10 mg ONCE ONE Administration Iopamidol 75 ml 06/25/24 20:14 06/25/24 20:24 Iopamidol-370 (76%);100ml Bottle IV 06/25/24 20:15 75 ml ONCE ONE Administration Ketorolac Tromethamine 15 mg 06/25/24 19:14 06/25/24 19:23 Ketorolac 30mg/Ml Vial IV 06/25/24 19:15 15 mg ONCE ONE Administration Nitrofurantoin Macrocrystals 100 mg 06/25/24 21:49 06/25/24 22:02 Nitrofurantoin 100mg Capsule PO 06/25/24 21:50 100 mg ONCE ONE Administration Sodium Chloride 10 ml 06/25/24 20:14 06/25/24 20:24 Sodium Chloride 0.9% 10ml Syr (Rad Only) IV 06/25/24 20:15 10 ml ONCE ONE Administration ORDERS Category Date Time Status CT abdomen pelvis w con Stat Cat Scan 06/25/24 19:15 Completed CBC w/Auto Diff [Complete Blood Count Auto Diff] Stat Lab 06/25/24 19:35 Completed CMP [Comprehensive Metabolic Panel] Stat Lab 06/25/24 19:35 Completed CRP [C-Reactive Protein] Stat Lab 06/25/24 19:35 Completed ESR [Erythrocyte Sedimentation Rate] Stat Lab 06/25/24 19:35 Completed HCG Qualitative, Serum Stat Lab 06/25/24 19:35 Completed UA [Urinalysis and Microscopic] Stat Lab 06/25/24 19:46 Completed Urine Culture Stat Micro 06/25/24 19:46 Received Medical Decision Narrative: In summary patient is a 34-year-old female who presents to the emergency department for evaluation of atraumatic left hip pain. Patient is hemodynamically stable upon arrival, afebrile. Physical exam is actually unremarkable as I am unable to reproduce the pain on palpation. She has no spine tenderness she has no SI joint tenderness she has no palpation at the greater trochanter she has no abdominal pain no rebound no guarding no rigidity bowel sounds are normal active.. Differential diagnosis includes arthritis versus bursitis versus referred pain and less likely but possible sciatica but an atypical presentation. Initial workup will be conducted with hematologic labs urinalysis CT scan abdomen pelvis. Initial interventions include Toradol Tylenol. Initial workup reviewed by me shows her white count is normal with no neutrophilic shift normal H&H CRP is negative at less than 0.3 serum hCG is negative urinalysis however shows occasional red blood cells occasional white cells 5-10 squamous epithelial cells 4+ sediment 2+ bacteria and her sed rate is normal at 10. My informal interpretation of her CT scan abdomen pelvis does not show any acute intra-abdominal pathology or problems about the hip. Upon repeat evaluation patient had no response to initial interventions and still has pain upon standing.. Given this patient is appropriate for discharge with referral to orthopedics for further evaluation as we have essentially ruled out any serious or life-threatening condition, a prescription for Robaxin and Macrobid with first dose of Macrobid given here close follow-up with her PCP. <Jamaal Sinha MD - Last Filed: 06/25/24 23:36> Vital Signs: 06/25/24 18:55 06/25/24 22:02 Temperature 98.1 F 98.2 F Temperature Source Oral Oral Pulse Rate 80 Pulse Rate [Left Radial] 92 H Respiratory Rate 18 20 Blood Pressure 140/70 Blood Pressure [Right Arm] 127/73 Blood Pressure Mean [Right Arm] 91 Blood Pressure Source Automatic Cuff Blood Pressure Position Sitting 02 Sat by Pulse Oximetry 100 Oxygen Delivery Method Room Air Room Air Lab Data Lab Results 06/25/24 19:35: WBC 6.0, RBC 4.64, Hgb 13.4, Hct 41.2, MCV 88.8, MCH 28.9, MCHC 32.5, RDW 12.6, Plt Count 218, MPV 10.1, Neut % (Auto) 43.1, Lymph % (Auto) 46.3, Piatt % (Auto) 7.2, Eos % (Auto) 2.5, Baso % (Auto) 0.7, Neut # (Auto) 2.6, Lymph # (Auto) 2.8, Piatt # (Auto) 0.4, Eos # (Auto) 0.2, Baso # (Auto) 0.0, ESR 10, Sodium 141, Potassium 3.7, Chloride 113 H, Carbon Dioxide 24, Anion Gap 7.7, BUN 17, Creatinine 1.00, Estimated Creat Clear 94, Estimated GFR 63, Est GFR ( Amer) 77, Glucose 87, Calcium 9.7, Total Bilirubin 0.5, AST 25, ALT 16, Alkaline Phosphatase 37 L, C-Reactive Protein < 0.3, Total Protein 7.4, Albumin 4.7, Globulin 2.7, Albumin/Globulin Ratio 1.7, Serum HCG, Qual Negative 06/25/24 19:46: Urine Color Yellow, Urine Appearance Cloudy, Urine pH 7.0, Ur Specific [place] 1.020, Urine Protein Negative, Urine Glucose (UA) Negative, Urine Ketones Negative, Urine Blood Negative, Urine Nitrate Negative, Urine Bilirubin Negative, Urine Urobilinogen 0.2, Ur Leukocyte Esterase Negative, Urine RBC Occasional, Urine WBC Occasional, Ur Squamous Epith Cells 5-10, Amorphous Sediment 4+, Urine Bacteria 2+ Orders (Tests/Meds): ED MEDICATIONS Discontinued Medications Generic Name Dose Route Start Last Admin Trade Name Freq PRN Reason Stop Dose Admin Acetaminophen 1,000 mg 06/25/24 19:14 06/25/24 19:23 Acetaminophen 500mg Tab PO 06/25/24 19:15 1,000 mg ONCE ONE Administration Dexamethasone Sodium Phosphate 10 mg 06/25/24 19:14 06/25/24 19:23 Dexamethasone 4mg/Ml 5ml Mdv IV 06/25/24 19:15 10 mg ONCE ONE Administration Iopamidol 75 ml 06/25/24 20:14 06/25/24 20:24 Iopamidol-370 (76%);100ml Bottle IV 06/25/24 20:15 75 ml ONCE ONE Administration Ketorolac Tromethamine 15 mg 06/25/24 19:14 06/25/24 19:23 Ketorolac 30mg/Ml Vial IV 06/25/24 19:15 15 mg ONCE ONE Administration Nitrofurantoin Macrocrystals 100 mg 06/25/24 21:49 06/25/24 22:02 Nitrofurantoin 100mg Capsule PO 06/25/24 21:50 100 mg ONCE ONE Administration Sodium Chloride 10 ml 06/25/24 20:14 06/25/24 20:24 Sodium Chloride 0.9% 10ml Syr (Rad Only) IV 06/25/24 20:15 10 ml ONCE ONE Administration ORDERS Category Date Time Status CT abdomen pelvis w con Stat Cat Scan 06/25/24 19:15 Completed CBC w/Auto Diff [Complete Blood Count Auto Diff] Stat Lab 06/25/24 19:35 Completed CMP [Comprehensive Metabolic Panel] Stat Lab 06/25/24 19:35 Completed CRP [C-Reactive Protein] Stat Lab 06/25/24 19:35 Completed ESR [Erythrocyte Sedimentation Rate] Stat Lab 06/25/24 19:35 Completed HCG Qualitative, Serum Stat Lab 06/25/24 19:35 Completed UA [Urinalysis and Microscopic] Stat Lab 06/25/24 19:46 Completed Urine Culture Stat Micro 06/25/24 19:46 Received Medical Decision Narrative: In summary patient is a 34-year-old female who presents to the emergency department for evaluation of atraumatic left hip pain. Patient is hemodynamically stable upon arrival, afebrile. Physical exam is actually unremarkable as I am unable to reproduce the pain on palpation. She has no spine tenderness she has no SI joint tenderness she has no palpation at the greater trochanter she has no abdominal pain no rebound no guarding no rigidity bowel sounds are normal active.. Differential diagnosis includes arthritis versus bursitis versus referred pain and less likely but possible sciatica but an atypical presentation. Initial workup will be conducted with hematologic labs urinalysis CT scan abdomen pelvis. Initial interventions include Toradol Tylenol. Initial workup reviewed by me shows her white count is normal with no neutrophilic shift normal H&H CRP is negative at less than 0.3 serum hCG is negative urinalysis however shows occasional red blood cells occasional white cells 5-10 squamous epithelial cells 4+ sediment 2+ bacteria and her sed rate is normal at 10. My informal interpretation of her CT scan abdomen pelvis does not show any acute intra-abdominal pathology or problems about the hip. Upon repeat evaluation patient had no response to initial interventions and still has pain upon standing.. Given this patient is appropriate for discharge with referral to orthopedics for further evaluation as we have essentially ruled out any serious or life-threatening condition, a prescription for Robaxin and Macrobid with first dose of Macrobid given here close follow-up with her PCP. I was consulted by the EDMAR, and we discussed the complexity of the problems being addressed. I approved the treatment and management plan for this patient's care in the Emergency Department, thus performing a substantive portion of the medical decision making. Jamaal Sinha MD Critical Care <MIQUEL Wise - Last Filed: 06/25/24 21:52> Critical Care Time Critical Care Time: No
--- NOTE | 2024-06-25 19:15 | CT_ITS ---
PROCEDURE INFORMATION: Exam: CT Abdomen And Pelvis With Contrast Exam date and time: 06/25/2024 8:22 PM Age: 34 years old Clinical indication: Abdominal pain; Generalized; Additional info: Left hip left lower quadrant pain TECHNIQUE: Imaging protocol: Computed tomography of the abdomen and pelvis with contrast. Radiation optimization: All CT scans at this facility use at least one of these dose optimization techniques: automated exposure control; mA and/or kV adjustment per patient size (includes targeted exams where dose is matched to clinical indication); or iterative reconstruction. Contrast material: ISOVUE; Contrast volume: 75 ml; Contrast route: IV; COMPARISON: CR XR CHEST PORTABLE 05/27/2023 11:24 PM FINDINGS: Liver: Normal. No mass. Gallbladder and biliary ducts: Normal. No calcified stones. No ductal dilation. Pancreas: Normal. No ductal dilation. Spleen: Normal. No splenomegaly. Adrenal glands: Normal. No mass. Kidneys and ureters: Normal. No hydronephrosis. Stomach and bowel: Moderately large colonic stool burden. No obstruction. No mucosal thickening. Appendix: No evidence of appendicitis. Intraperitoneal space: Unremarkable. No free air. No significant fluid collection. Vasculature: Unremarkable. No abdominal aortic aneurysm. Lymph nodes: Unremarkable. No enlarged lymph nodes. Urinary bladder: Unremarkable as visualized. Reproductive: Unremarkable as visualized. Bones/joints: Unremarkable. No acute fracture. Soft tissues: Unremarkable. IMPRESSION: 1. No acute findings identified. 2. Moderately large colonic stool burden.
[2024-06-25] MEDS: DEXAMETHASONE 4MG/ML 5ML MDV 10 MG IV (19:23)
[2024-06-25] MEDS: KETOROLAC 30MG/ML VIAL 15 MG IV (19:23)
[2024-06-25] MEDS: ACETAMINOPHEN 500MG TAB 1000 MG PO (19:23)
--- NOTE | 2024-06-25 19:40 | PC.NURSE ---
Pt awake alert and oriented Skin pink warm and dry Resp full and easy Speech clear and appropriate
--- NOTE | 2024-06-25 19:41 | PC.NURSE ---
Pt ambulated to restroom to collect UA Gait gaurded
[2024-06-25 19:48] LABS: Microscopic, Urine URINE MICROSCOPIC (MICROSCOPIC)
[2024-06-25 19:49] LABS: Basophils % 0.7 % (0.1-2.0); Eosinophils # 0.2 K/mm3 (0.0-0.4); Eosinophils % 2.5 % (0.1-12.0); Hematocrit 41.2 % (37.0-47.0); Hemoglobin 13.4 g/dL (12.2-16.2); Lymphocytes # 2.8 K/mm3 (0.7-4.5); Lymphocytes % 46.3 % (10-50); Mean Corpuscular HGB Conc 32.5 g/dL (31.8-35.4); Mean Corpuscular Hemoglobin 28.9 pg (27.0-31.2); Mean Corpuscular Volume 88.8 fl (81-99); Mean Platelet Volume 10.1 fl (7.4-10.4); Monocytes # 0.4 K/mm3 (0.1-1.0); Monocytes % 7.2 % (1.7-9.3); Neutrophils # 2.6 K/mm3 (1.8-7.8); Neutrophils % 43.1 % (37.0-80.0); Platelet Count 218 K/mm3 (142-424); Red Blood Count 4.64 M/mm3 (4.20-5.40); Red Cell Distribution Width 12.6 % (11.5-17.5)
[2024-06-25 19:50] LABS: Bilirubin,Urine Negative (Negative); Blood, Urine Negative (Negative); Color,Urine YELLOW (Yellow); Glucose,Urine (UA) Negative (Negative); Ketones,Urine Negative (Negative); Leukocyte Esterase,Urine Negative (Negative); Nitrate,Urine Negative (Negative); Protein,Urine Negative (Negative); Urobilinogen,Urine 0.2 EU/dl (0.2)
[2024-06-25 19:51] LABS: Appearance,Urine Cloudy (Clear)
[2024-06-25 19:54] LABS: Alanine Aminotransferase 16 U/L (12-78); Albumin Level 4.7 g/dl (3.5-5.0); Albumin/Globulin Ratio 1.7 (1.1-1.8); Alkaline Phosphatase 37 U/L (38-126); Anion Gap 7.7 mEq/L (5-15); Aspartate Amino Transferase 25 U/L (14-36); Bilirubin,Total 0.5 mg/dl (0.2-1.3); Blood Urea Nitrogen 17 mg/dl (7-17); Calcium 9.7 mg/dl (8.4-10.2); Carbon Dioxide 24 mmol/L (22.0-30.0); Chloride 113 mmol/L (98-107); Creatinine Clearance Estimated 94 mL/min (50-200); Estimated Glomerular Filt Rate 63 ml/min (>60); GFR (African American) 77 ML/MIN (>60); Globulin 2.7 g/dL (1.3-3.2); Glucose 87 mg/dl (74-100); Potassium 3.7 mmoL/L (3.5-5.1); Sodium 141 mmol/L (136-145); Total Protein,Serum 7.4 g/dl (6.3-8.2)
[2024-06-25 19:55] LABS: HCG Qualitative, Serum Negative (Negative)
[2024-06-25 20:05] LABS: Amorphous Sediment,Urine 4+ /lpf; RBC,Urine Occasional #/hpf (0-3); WBC,Urine Occasional #/hpf (0-3)
[2024-06-25 20:06] LABS: Bacteria,Urine 2+ /lpf
[2024-06-25 20:14] LABS: C-Reactive Protein < 0.3 mg/L (0-4)
[2024-06-25 20:18] LABS: Erythrocyte Sedimentation Rate 10 mm/hr (0-20)
[2024-06-25] MEDS: SODIUM CHLORIDE 0.9% 10ML SYR (RAD ONLY) 10 ML IV (20:24)
[2024-06-25] MEDS: IOPAMIDOL-370 (76%);100ML BOTTLE 75 ML IV (20:24)
--- NOTE | 2024-06-25 20:26 | PC.NURSE ---
Pt back from CT scan via wheelchair
[2024-06-25 22:02] VITALS: BP 140/70; PULSE 80; RESP 20; TEMP 36.8; O2SAT 98
[2024-06-25] MEDS: NITROFURANTOIN 100MG CAPSULE 100 MG PO (22:02)
== END 2024-06-25 22:02 | disposition home or self-care (01) ==
PROVIDERS: Physician Assistant; Emergency Provider Emergency Medicine; PCP Internal Medicine Adolescent Medicine
DX: N39.0 Urinary tract infection, site not specified (principal); M25.552 Pain in left hip
CPT/HCPCS: 74177; 80053; 81001; 84703; 85025; 85651; 86140; 87086; 96374; 96375; 99284; J1100; J1885; Q9967

== ENCOUNTER 2025-01-16 10:28 | Emergency (ER) | payer OTHER, SELFPAY ==
[2025-01-16] VITALS (22 sets, daily range): BP systolic 106–156; BP diastolic 54–102; PULSE 51–87; RESP 15; TEMP 36.7–36.9; O2SAT 98–100; BMI 28.3
--- NOTE | 2025-01-16 11:05 | [facility].EDGENADL ---
Discharge Plan Disposition Patient Disposition: Home, Self-Care Condition: Good Prescriptions Prescriptions: New ondansetron 4 mg tablet,disintegrating 4 mg PO HS Qty: 10 0RF dicyclomine 20 mg tablet 20 mg PO BID Qty: 20 0RF No Action medroxyprogesterone [Depo-Provera] 150 mg/mL suspension 150 mg IM [id number] Qty: 1 3RF topiramate 100 mg tablet 100 mg PO BID ondansetron 4 mg tablet,disintegrating 4 mg PO Q6H PRN (Reason: nausea and vomiting) Qty: 10 0RF nitrofurantoin monohyd/m-cryst 100 mg capsule 100 mg PO BID 5 Days Qty: 10 0RF Rx Instructions: must administer with a meal/food methocarbamol 750 mg tablet 750 mg PO Q6H PRN (Reason: muscle spasm) Qty: 20 0RF Referrals Follow up/Referrals: Alvaraod Ashford MD [Primary Care Provider, Internal Medicine] - See instructions Activity Restrictions/Add. Instructions Additional Instructions/Restrictions: Headache Tylenol and ibuprofen at home for the next couple days. I sent you with Zofran and the Bentyl which you can use in addition. Stay well-hydrated. I encourage a bland diet over the next few days. Return to the emergency department for any acute or worsening abdominal pain, development of bloody diarrhea. Inability to tolerate oral intake or if you have any other acute concerns Clinical Impressions Clinical Impression: Gastroenteritis Instructions Patient Instructions: DI for Acute Abdominal Pain Print Language Print Language: [place] Discharge ED Provider: Leny Veras Adult HPI General Chief complaint: Abdominal Pain Stated complaint: vomitting, stomach pain on left side Time Seen by Provider: 01/16/25 10:53 Mode of Arrival: Ambulatory Source of Information: Patient Description of Symptoms (Recalled from ER Triage Doc. by RN): patient states she began having vomiting a nd diarrhea at 2am with burning cramping left upper abdominal pain History of Present Illness HPI narrative: Patient is a 35-year-old female with no significant past medical history except for cholecystectomy who presented to the emergency department with nausea vomiting diarrhea since 2:00 this morning. Patient states that she has had multiple episodes of nonbloody emesis as well as a few episodes of small loose stools with no blood. Patient denies any fevers. Patient reports a burning achy pain on the left side of her abdomen. Patient denies any chest pain shortness of breath headache vision changes. Patient denies any other recent exposures. Patient otherwise does not take any daily medications. Related Data Home Medications ?Medication ?Instructions ?Recorded ?Confirmed topiramate 100 mg tablet 100 mg PO BID 06/27/23 09/25/23 Previous Rx's ?Medication ?Instructions ?Recorded medroxyprogesterone 150 mg/mL 150 mg IM [id number] control 06/27/23 intramuscular suspension #1 mL (Depo-Provera) ondansetron 4 mg disintegrating 4 mg PO Q6H PRN nausea and 04/06/24 tablet vomiting #10 tabs methocarbamol 750 mg tablet 750 mg PO Q6H PRN muscle spasm #20 06/25/24 tabs nitrofurantoin 100 mg PO BID 5 days #10 caps 06/25/24 monohydrate/macrocrystals 100 mg capsule dicyclomine 20 mg tablet 20 mg PO BID #20 tabs 01/16/25 ondansetron 4 mg disintegrating 4 mg PO HS #10 tabs 01/16/25 tablet Allergies Allergy/AdvReac Type Severity Reaction Status Date / Time codeine Allergy Unknown Unknown Verified 09/25/23 13:26 allergy reaction Penicillins Allergy Unknown Unknown Verified 09/25/23 13:26 allergy reaction PFSH PFSH Disclaimer: The information contained in this section may have been updated after the patient was seen, as this information can be updated by other users. 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 Depo-Provera contraceptive status Vulvar lesion Mood disorder Anxiety Surgical History (Updated 06/27/23 @ 09:46 by TRIPP Reyna) History of cholecystectomy History of delivery Family History (Updated 06/27/23 @ 09:47 by TRIPP Reyna) Grandmother Cancer Father Coronary artery disease Other Heart attack Social History Smoking Status: Current every day smoker tobacco type: e-cigarettes alcohol intake: never substance use type: opiates current occupational status: unemployed Travel in the last 8 weeks?: None household members: significant other housing: house caffeine: No Have you lived/traveled outside [place] in past 30 days?: No Contact w/someone who lives/traveled outside [place] past 30 days?: No Exposure to someone with infectious disease in past 14 days?: No Do you have a fever (greater than 100.4 F or 38 C)?: No Have you tested positive for COVID-19?: No Exposed to someone with COVID-19 in past 14 days?: No Do you have a sore throat?: No Do you have a cough?: No Do you have any weakness?: No Do you have any diarrhea?: No Are you experiencing any unusual bleeding?: No Do you have any muscle aches/pain?: No Do you have any abdominal pain?: No Are you experiencing loss of taste or smell?: No Other Medical History Have you received the Flu Vaccine for this season: No Have you received the Pneumonia Vaccine: No ROS Obtained: Yes All systems reviewed & no additional complaints except as documented and Yes Systems reviewed as appropriate & no additional complaints except as documented Physical Exam General General appearance: alert and in no apparent distress Head Head exam: atraumatic, normocephalic and normal inspection Eye Eye exam: Present normal appearance, PERRL and EOMI; Absent scleral icterus ENT ENT exam: Present normal exam and normal external ear exam Neck Neck exam: Present normal inspection and full ROM Chest Chest inspection: Present normal inspection and symmetric chest wall rise Respiratory Respiratory exam: Present normal lung sounds bilaterally; Absent respiratory distress or wheezes Cardiovascular Cardiovascular exam: Present regular rate, normal rhythm and normal heart sounds Abdominal Exam Abdominal exam: Present soft, distention and other (No CVA tenderness); Absent tenderness, guarding or rebound Extremities Exam Extremities exam: Present normal inspection and full ROM Back Exam Back exam: Present normal inspection and full ROM Neurological Exam Neurological exam: Present alert and oriented X3 Psychiatric Psychiatric exam: Present normal affect and normal mood Skin Skin exam: Present warm and dry Medical Decision Making Medical Records Medical records reviewed: Yes I reviewed the patient's medical records. Screening: Per USPSTF and CDC recommendations, given the prevalence of disease in our region, it is our hospital?s policy to screen for HIV and viral Hepatitis for all patients aged 18 and over and those with ongoing risk factors. Vikas Inquiry Pt receiving controlled substance: No Vital Signs: 01/16/25 10:35 01/16/25 10:38 01/16/25 10:45 Temperature 98.4 F Temperature Source Oral Pulse Rate 87 57 L Pulse Rate [Right Radial] 76 Respiratory Rate 15 Blood Pressure 152/88 H 129/82 Blood Pressure [Left Arm] 152/88 H Blood Pressure Mean [Left Arm] 109 Blood Pressure Source Blood Pressure Source [Left Arm] Automatic Cuff Blood Pressure Position Blood Pressure Position [Left Arm] Supine 02 Sat by Pulse Oximetry 100 100 100 Oxygen Delivery Method Room Air Room Air Room Air 01/16/25 11:01 01/16/25 11:15 01/16/25 11:31 Temperature Temperature Source Pulse Rate 73 54 L 58 L Pulse Rate [Right Radial] Respiratory Rate Blood Pressure 156/78 H 134/80 132/84 Blood Pressure [Left Arm] Blood Pressure Mean [Left Arm] Blood Pressure Source Blood Pressure Source [Left Arm] Blood Pressure Position Blood Pressure Position [Left Arm] 02 Sat by Pulse Oximetry 100 100 100 Oxygen Delivery Method Room Air Room Air Room Air 01/16/25 11:45 01/16/25 12:01 01/16/25 12:15 Temperature Temperature Source Pulse Rate 51 L 58 L 51 L Pulse Rate [Right Radial] Respiratory Rate Blood Pressure 146/84 H 121/54 L 120/60 Blood Pressure [Left Arm] Blood Pressure Mean [Left Arm] Blood Pressure Source Blood Pressure Source [Left Arm] Blood Pressure Position Blood Pressure Position [Left Arm] 02 Sat by Pulse Oximetry 100 100 100 Oxygen Delivery Method Room Air Room Air Room Air 01/16/25 12:31 01/16/25 12:45 01/16/25 13:00 Temperature Temperature Source Pulse Rate 59 L 54 L 59 L Pulse Rate [Right Radial] Respiratory Rate Blood Pressure 130/87 135/102 H 134/88 Blood Pressure [Left Arm] Blood Pressure Mean [Left Arm] Blood Pressure Source Blood Pressure Source [Left Arm] Blood Pressure Position Blood Pressure Position [Left Arm] 02 Sat by Pulse Oximetry 100 98 100 Oxygen Delivery Method Room Air Room Air Room Air 01/16/25 13:15 01/16/25 13:30 01/16/25 13:45 Temperature Temperature Source Pulse Rate 51 L 56 L 75 Pulse Rate [Right Radial] Respiratory Rate Blood Pressure 117/68 117/63 113/70 Blood Pressure [Left Arm] Blood Pressure Mean [Left Arm] Blood Pressure Source Blood Pressure Source [Left Arm] Blood Pressure Position Blood Pressure Position [Left Arm] 02 Sat by Pulse Oximetry 100 100 100 Oxygen Delivery Method Room Air Room Air Room Air 01/16/25 14:01 01/16/25 14:15 01/16/25 14:30 Temperature Temperature Source Pulse Rate 55 L 54 L 56 L Pulse Rate [Right Radial] Respiratory Rate Blood Pressure 131/81 121/69 109/58 L Blood Pressure [Left Arm] Blood Pressure Mean [Left Arm] Blood Pressure Source Blood Pressure Source [Left Arm] Blood Pressure Position Blood Pressure Position [Left Arm] 02 Sat by Pulse Oximetry 99 99 100 Oxygen Delivery Method Room Air Room Air Room Air 01/16/25 14:45 01/16/25 15:00 01/16/25 15:15 Temperature Temperature Source Pulse Rate 62 62 85 Pulse Rate [Right Radial] Respiratory Rate Blood Pressure 106/60 L 123/84 129/81 Blood Pressure [Left Arm] Blood Pressure Mean [Left Arm] Blood Pressure Source Blood Pressure Source [Left Arm] Blood Pressure Position Blood Pressure Position [Left Arm] 02 Sat by Pulse Oximetry 100 100 100 Oxygen Delivery Method Room Air Room Air Room Air 01/16/25 15:27 Temperature 98.1 F Temperature Source Oral Pulse Rate 85 Pulse Rate [Right Radial] Respiratory Rate 15 Blood Pressure 125/82 Blood Pressure [Left Arm] Blood Pressure Mean [Left Arm] Blood Pressure Source Automatic Cuff Blood Pressure Source [Left Arm] Blood Pressure Position Sitting Blood Pressure Position [Left Arm] 02 Sat by Pulse Oximetry Oxygen Delivery Method Room Air Lab Data Lab results reviewed: Yes I reviewed the patient's lab results. Lab Results 01/16/25 10:42: WBC 8.4, RBC 5.34, Hgb 15.6, Hct 46.3, MCV 86.7, MCH 29.2, MCHC 33.7, RDW 11.9, Plt Count 241, MPV 10.4, Neut % (Auto) 70.8, Lymph % (Auto) 23.6, Will % (Auto) 4.8, Eos % (Auto) 0.4, Baso % (Auto) 0.2, Neut # (Auto) 6.0, Lymph # (Auto) 2.0, Will # (Auto) 0.4, Eos # (Auto) 0.0, Baso # (Auto) 0.0, Sodium 141, Potassium 4.3, Chloride 107, Carbon Dioxide 19 L, Anion Gap 19.3 H, BUN 13, Creatinine 1.00, Estimated Creat Clear 96, Estimated GFR 63, Est GFR ( Amer) 76, Glucose 112 H, Calcium 9.9, Total Bilirubin 1.0, AST 28, ALT 20, Alkaline Phosphatase 83, Total Protein 8.3 H, Albumin 5.1 H, Globulin 3.2, Albumin/Globulin Ratio 1.6, Lipase 96, Serum HCG, Qual Negative, HCV Ab VIOLETTE w/Rflx PCR Qn Reactive, HIV Ag/Ab Combo Qual Negative 01/16/25 11:09: Urine Color Yellow, Urine Appearance Clear, Urine pH 6.5, Ur Specific [place] 1.015, Urine Protein Negative, Urine Glucose (UA) Negative, Urine Ketones 1+, Urine Blood Negative, Urine Nitrate Negative, Urine Bilirubin Negative, Urine Urobilinogen 0.2, Ur Leukocyte Esterase Negative, Urine RBC None, Urine WBC Occasional, Ur Squamous Epith Cells Occasional, Amorphous Sediment Trace, Urine Bacteria Trace 01/16/25 10:42 01/16/25 10:42 Orders (Tests/Meds): ED MEDICATIONS Discontinued Medications Generic Name Dose Route Start Last Admin Trade Name Anastasiia PRN Reason Stop Dose Admin Acetaminophen 1,000 mg 01/16/25 12:49 01/16/25 13:05 Acetaminophen 500mg Tab PO 01/16/25 12:50 1,000 mg ONCE ONE Administration Dicyclomine HCl 20 mg 01/16/25 11:05 01/16/25 11:20 Dicyclomine 10mg Capsule PO 01/16/25 11:06 20 mg ONCE ONE Administration Lactated Ringer's 1,000 mls @ 999 mls/hr 01/16/25 11:05 01/16/25 12:40 Lactated Ringer's 1000 Ml Bag IV 01/16/25 12:05 Infused .Q1H1M ONE Infusion Iopamidol 75 ml 01/16/25 13:58 01/16/25 13:59 Iopamidol-370 (76%);100ml Bottle IV 01/16/25 13:59 75 ml ONCE ONE Administration Ketorolac Tromethamine 30 mg 01/16/25 12:49 01/16/25 13:05 Ketorolac 30mg/Ml Vial IV 01/16/25 12:50 30 mg ONCE ONE Administration Ondansetron HCl 4 mg 01/16/25 11:05 01/16/25 11:20 Ondansetron 4mg/2ml Vial IV 01/16/25 11:06 4 mg ONCE ONE Administration Sodium Chloride 10 ml 01/16/25 13:58 01/16/25 13:59 Sodium Chloride 0.9% 10ml Syr (Rad Only) IV 02/15/25 13:57 10 ml NEEDED PRN Administration Maintain IV Site ORDERS Category Date Time Status CT abdomen pelvis w con Stat Cat Scan 01/16/25 13:10 Completed CBC w/Auto Diff [Complete Blood Count Auto Diff] Stat Lab 01/16/25 10:42 Completed CMP [Comprehensive Metabolic Panel] Stat Lab 01/16/25 10:42 Completed HCG Qualitative, Serum Stat Lab 01/16/25 10:42 Completed HCV RNA PCR, Quant Stat Lab 01/16/25 10:42 Received HIV Combo Stat Lab 01/16/25 10:42 Completed Hepatitis C Ab Qual. W/ RFX Stat Lab 01/16/25 10:42 Completed Lipase Stat Lab 01/16/25 10:42 Completed UA [Urinalysis and Microscopic] Stat Lab 01/16/25 11:09 Completed Urine Culture Stat Micro 01/16/25 11:09 Completed Medical Decision Narrative: Follow-up withPatient is a 35-year-old female with no significant past medical history except cholecystectomy who presents to the emergency department with vomiting, diarrhea abdominal pain. On arrival, patient was hemodynamically stable with unremarkable vital signs. On exam, patient had no abdominal tenderness, no CVA tenderness, patient's exam was otherwise unremarkable. Differential includes but not limited to: UTI, nephrolithiasis, pyelonephritis, dehydration, gastroenteritis, amongst others. Patient was given IV fluids, Bentyl and Zofran on arrival. Patient's labs were reviewed and interpreted by myself: CBC showed no leukocytosis, hemoglobin was stable. CMP was unremarkable. UA showed no evidence of infection. While in the emergency department, patient complained of new left-sided flank pain stated that her pain has gotten worse. Patient was given Toradol and CT scan of the abdomen was obtained to further evaluate and workup concerning for possible nephrolithiasis. Patient CT scan was reviewed and interpreted by myself and showed no acute intra-abdominal process. At this time, given patient's unremarkable workup I felt the patient was safe and appropriate for discharge home. Return precautions were discussed. Critical Care Critical Care Time Critical Care Time: No
[2025-01-16 11:16] LABS: Hematocrit 46.3 % (37.0-47.0); Hemoglobin 15.6 g/dL (12.2-16.2); Immature Granulocytes % 0.2 %; Mean Corpuscular HGB Conc 33.7 g/dL (31.8-35.4); Mean Corpuscular Hemoglobin 29.2 pg (27.0-31.2); Mean Corpuscular Volume 86.7 fl (81-99); Nucleated Red Blood Cells % 0 %; Platelet Count 241 K/mm3 (142-424); Red Blood Count 5.34 M/mm3 (4.20-5.40); Red Cell Distribution Width-SD 37.5 fL; White Blood Count 8.4 K/mm3 (4.8-10.8)
[2025-01-16] MEDS: ONDANSETRON 4MG/2ML VIAL 4 MG IV (11:20)
[2025-01-16] MEDS: LACTATED RINGERS 1000ML 1,000 ML 999 ML IV (11:21)
[2025-01-16 11:24] LABS: Alanine Aminotransferase 20 U/L (12-78); Albumin Level 5.1 g/dl (3.5-5.0); Albumin/Globulin Ratio 1.6 (1.1-1.8); Alkaline Phosphatase 83 U/L (38-126); Anion Gap 19.3 mEq/L (5-15); Aspartate Amino Transferase 28 U/L (14-36); Bilirubin,Total 1.0 mg/dl (0.2-1.3); Blood Urea Nitrogen 13 mg/dl (7-17); Calcium 9.9 mg/dl (8.4-10.2); Carbon Dioxide 19 mmol/L (22.0-30.0); Chloride 107 mmol/L (98-107); Creatinine Clearance Estimated 96 mL/min (50-200); Creatinine,Serum 1.00 mg/dl (0.52-1.04); Estimated Glomerular Filt Rate 63 ml/min (>60); GFR (African American) 76 ML/MIN (>60); Globulin 3.2 g/dL (1.3-3.2); Glucose 112 mg/dl (74-100); Potassium 4.3 mmoL/L (3.5-5.1); Sodium 141 mmol/L (136-145); Total Protein,Serum 8.3 g/dl (6.3-8.2)
[2025-01-16 11:37] LABS: HCG Qualitative, Serum Negative (Negative)
[2025-01-16 11:38] LABS: Lipase 96 U/L (23-300)
[2025-01-16 12:23] LABS: Microscopic, Urine URINE MICROSCOPIC (MICROSCOPIC)
[2025-01-16 13:01] LABS: Bilirubin,Urine Negative (Negative); Color,Urine YELLOW (Yellow); Glucose,Urine (UA) Negative (Negative); Ketones,Urine 1+ (Negative); Leukocyte Esterase,Urine Negative (Negative); PH,Urine 6.5 (5.0-8.5); Protein,Urine Negative (Negative); Specific Gravity, Urine 1.015 (1.005-1.030); Urobilinogen,Urine 0.2 EU/dl (0.2)
[2025-01-16] MEDS: KETOROLAC 30MG/ML VIAL 30 MG IV (13:05)
[2025-01-16] MEDS: ACETAMINOPHEN 500MG TAB 1000 MG PO (13:05)
--- NOTE | 2025-01-16 13:10 | CT_ITS ---
PROCEDURE INFORMATION: Exam: CT Abdomen And Pelvis With Contrast Exam date and time: 01/16/2025 1:56 PM Age: 35 years old Clinical indication: Other: Left flank pain R/O stone vs pyelo TECHNIQUE: Imaging protocol: Computed tomography of the abdomen and pelvis with contrast. Radiation optimization: All CT scans at this facility use at least one of these dose optimization techniques: automated exposure control; mA and/or kV adjustment per patient size (includes targeted exams where dose is matched to clinical indication); or iterative reconstruction. Contrast material: ISOVUE; Contrast volume: 75 ml; Contrast route: IV; COMPARISON: CT ABDOMEN PELVIS W CON 06/25/2024 8:22 PM FINDINGS: Liver: Normal. No mass. Gallbladder and biliary ducts: Gallbladder not seen. Pancreas: Normal. No ductal dilation. Spleen: Normal. No splenomegaly. Adrenal glands: Normal. No mass. Kidneys and ureters: Normal. No hydronephrosis. Stomach and bowel: Areas of small bowel wall thickening. No bowel dilation. Appendix: No evidence of appendicitis. Intraperitoneal space: Unremarkable. No free air. No significant fluid collection. Vasculature: Unremarkable. No abdominal aortic aneurysm. Lymph nodes: Unremarkable. No enlarged lymph nodes. Urinary bladder: Unremarkable as visualized. Reproductive: Unremarkable as visualized. Bones/joints: Unremarkable. No acute fracture. Soft tissues: Nonspecific 9 x 12 x 5 mm nodule in the left gluteal region subcutaneous fat. IMPRESSION: 1. Areas of small bowel wall thickening may be secondary to incomplete distention and/or enteritis. 2. No CT evidence of radiopaque urinary tract stones. No CT evidence of pyelonephritis.
[2025-01-16 13:15] LABS: Amorphous Sediment,Urine Trace /lpf; Bacteria,Urine Trace /lpf; Squamous Epithelial Cell,Urine Occasional #/hpf (0-5); WBC,Urine Occasional #/hpf (0-3)
[2025-01-16 13:21] LABS: Hepatitis C Ab Qual. W/ RFX REACTIVE (Negative)
[2025-01-16] MEDS: IOPAMIDOL-370 (76%);100ML BOTTLE 75 ML IV (13:59)
[2025-01-16] MEDS: SODIUM CHLORIDE 0.9% 10ML SYR (RAD ONLY) 10 ML IV (13:59)
== END 2025-01-16 15:28 | disposition home or self-care (01) ==
PROVIDERS: Emergency Provider Student in an Organized Health Care Education/Training Program; PCP Internal Medicine Adolescent Medicine
DX: R10.32 Left lower quadrant pain (principal); R10.A2 Flank pain, left side; R11.2 Nausea with vomiting, unspecified; K52.9 Noninfective gastroenteritis and colitis, unspecified
CPT/HCPCS: 74177; 80053; 81001; 83690; 84703; 85025; 86803; 87086; 87389; 87522; 96361; 96374; 96375; 99285; J1885; J2405; J7120; Q9967